=== PATIENT | female | born 1945 | race Caucasian/White ===

== ENCOUNTER 2016-03-19 16:07 | Emergency (ER) | payer MEDICARE, BC ==
[2016-03-19 16:55] LABS: Urine Bilirubin Negative (NEGATIVE); Urine Ketone Negative (NEGATIVE); Urine Nitrite Negative (NEGATIVE); Urine Protein 100 mg/dL (NEGATIVE); Urine Urobilinogen Normal (NORMAL)
--- NOTE | 2016-03-19 17:03 | ERNOTE ---
Medical Problem HPI - General Chief Complaint: General Assessment Time Seen by Provider: 03/19/16 16:50 Source: patient, family Exam Limitations: no limitations - Immun/Allergies/Home Medications Immunizations: IMMUNIZATION HX Immunizations Up to Date Yes History of Influenza Vaccine Yes Hx Pneumococcal Vaccination No Allergies/Adverse Reactions: Allergies gentamicin [Gentamicin] Allergy (Verified 12/28/15 01:09) unknown Metronidazole HCl [From Flagyl] Allergy (Verified 12/28/15 01:09) unknown morphine Allergy (Verified 12/28/15 01:09) unknown ORA Inhibitors Adverse Reaction (Mild, Verified 12/28/15 01:09) COUGH Home Medications: HOME MEDICATIONS Allopurinol [Zyloprim (Allopurinol)] 100 mg PO DAILY 12/28/15 [Last Taken Unknown] Amiodarone HCl [Cordarone] 200 mg PO DAILY 12/28/15 [Last Taken Unknown] Ascorbic Acid [Vitamin C] 500 mg PO DAILY 12/28/15 [Last Taken Unknown] Carvedilol [Coreg] 6.25 mg PO BID 12/28/15 [Last Taken Unknown] Docusate Sodium [Colace] 100 mg PO DAILY 12/28/15 [Last Taken Unknown] Insulin Aspart [Novolog] 5 units SC TIDWM 12/28/15 [Last Taken Unknown] Insulin Glargine,Hum.rec.anlog [Lantus] 28 units SC DAILY 12/28/15 [Last Taken Unknown] Isosorbide Mononitrate [Imdur] 30 mg PO DAILY 12/28/15 [Last Taken Unknown] Oxybutynin Chloride [Ditropan] 5 mg PO TID 12/28/15 [Last Taken Unknown] Rivaroxaban [Xarelto] 15 mg PO HS 12/28/15 [Last Taken Unknown] Simvastatin [Zocor] 20 mg PO DAILY 12/28/15 [Last Taken Unknown] Sulfamethoxazole/Trimethoprim [Bactrim] 1 tab PO BID #10 tablet 12/28/15 [Last Taken Unknown] Ciprofloxacin HCl [Cipro] 500 mg PO BID #20 tab 12/30/15 [Last Taken Unknown] Ciprofloxacin HCl [Cipro] 250 mg PO BID #20 tablet 02/03/16 [Last Taken Unknown] Ciprofloxacin HCl [Cipro] 500 mg PO BID #20 tab 03/19/16 [Last Taken Unknown] - History of Present History Narrative: Patient has felt generally weak for a couple of days. She is concerned that she might be having a bladder infection as she had similar symptoms with one before. She has urinated more frequently today but has no other new symptoms. She had am episode of afib in , that was converted, is not on any anticoagulation any more Review of Systems - Review of Systems Constitutional: Present: See HPI, weakness, malaise. Absent: recent illness, fever, chills EYE: Absent: vision changes ENT: Absent: nose congestion, sore throat Respiratory: Absent: shortness of breath, cough Cardiology: Absent: chest pain Gastrointestinal/Abdominal: Absent: nausea, vomiting, diarrhea, abdominal pain Genitourinary: Present: frequency. Absent: dysuria Skin: Absent: rash Neurological: Present: See HPI, weakness - general ,not focal. Absent: headache , dizziness/light-headedness - Patient's Past Medical History Patient History - Medical: Diabetes Type 2 Insulin Dependent, Kidney stone, UTI' S Patient History - Cardiac/Respiratory: Atrial Fibrillation, Coronary Heart Disease, Myocardial Infarction, Peripheral Vascular Disease, Other - UTI's Patient History - Cancer: No Hx of Cancer Patient History - Surgical Procedures: Amputation, Appendectomy, Cataracts, Cholecystectomy, Coronary Bypass Surgery, Hysterectomy, Other - Family History Mother Family History - Medical: Diabetes Type 2 Family History - Cardiac/Respiratory: Myocardial Infarction - Social History Living Situations: spouse Smoking Status: Never smoker Alcohol Use: none Drug Use: none Physical Exam - Physical Exam General Appearance: Present: wd/wn, alert, no apparent distress Eye Exam: Normal inspection: bilateral, PERRL: bilateral Ears, Nose, Throat: Present: normal ENT inspection, normal pharynx Neck: Present: normal inspection, nontender Respiratory: Present: no respiratory distress, normal breath sounds, no accessory muscle use, lungs clear Cardiovascular/Chest: Present: regular rate, rhythm, no murmur Gastrointestinal/Abdominal: Present: nontender, nondistended, soft Extremity Exam: Present: other - BKA bilateral Neurological Exam: Present: alert, oriented, normal mood/affect, no motor/ sensory deficits, analytics intern II-XII nml as tested Skin Exam: Present: normal color, warm/dry ED Progress - Results and Orders Patient's Lab Results:: I have reviewed the patient's lab results. - Vital Signs Patient's Vital Signs:: I have reviewed the patient's vital signs. Vital Signs: Vital Signs 03/19/16 16:27 Temperature 36.5 C Pulse Rate 64 Respiratory 16 Rate Blood Pressure 122/78 O2 Sat by Pulse 94 Oximetry - Progress/Reassessment Chief Complaint: General Assessment Progress Note-Subjective: 03/19/16 17:41 discussed lab results last positive culture from december grew pseudomonas sensitive to cipro Departure - Departure Clinical Impression: Urinary tract infection Qualifiers: Urinary tract infection type: acute cystitis Hematuria presence: without hematuria Qualified Code(s): N30.00 - Acute cystitis without hematuria Disposition: Home self-care Condition: Poor Instructions: Urinary Tract Infection, Adult, [id number] Referrals: Samantha Watson MD [Staff Physician] - Prescriptions: Ciprofloxacin HCl [Cipro] 500 mg PO BID #20 tab
[2016-03-19 17:09] LABS: Urine Blood 10 /ul (NEGATIVE)
[2016-03-19 17:10] LABS: Urine Appearance Slightly Cloudy; Urine Bacteria 4+; Urine Color Yellow; Urine Fine Granular Cast 0-5 /LPF; Urine Hyaline Cast 0-5 /LPF; Urine RBC 0-5 /hpf (0-5); Urine Waxy Cast 0-5 /LPF
[2016-03-19 17:11] LABS: Urine WBC 25-50 /hpf (0-5)
[2016-03-19 17:19] VITALS: BP 156/60
[2016-03-19] MEDS ORDERED: CIPROFLOXACIN HCL 250 MG TABLET PO ONE (17:41)
[2016-03-19] MEDS ORDERED: CIPROFLOXACIN HCL 250 MG TABLET ONE (17:55)
== END 2016-03-19 17:58 | disposition home or self-care (01) ==
LOC: ER 16:07
DX: N30.00 Acute cystitis without hematuria (principal); Z87.442 Personal history of urinary calculi; Z87.440 Personal history of urinary (tract) infections

== ENCOUNTER 2016-03-27 10:34 | Inpatient (IN) | payer MEDICARE, BC ==
[2016-03-27] MEDS ORDERED: NORMAL SALINE 1,000 ML IV ONE (11:01)
--- NOTE | 2016-03-27 11:10 | ERNOTE ---
Medical Problem HPI - Narrative Date of Service: 03/27/16 - General Chief Complaint: General Assessment Time Seen by Provider: 03/27/16 10:55 Source: patient, family Exam Limitations: no limitations - Immun/Allergies/Home Medications Immunizations: IMMUNIZATION HX Immunizations Up to Date Yes History of Influenza Vaccine Yes Hx Pneumococcal Vaccination No Allergies/Adverse Reactions: Allergies gentamicin [Gentamicin] Allergy (Verified 03/27/16 10:43) unknown Metronidazole HCl [From Flagyl] Allergy (Verified 03/27/16 10:43) unknown morphine Allergy (Verified 03/27/16 10:43) unknown ROA Inhibitors Adverse Reaction (Mild, Verified 03/27/16 10:43) COUGH Home Medications: HOME MEDICATIONS Allopurinol [Zyloprim (Allopurinol)] 100 mg PO DAILY 12/28/15 [Last Taken Unknown] Amiodarone HCl [Cordarone] 200 mg PO DAILY 12/28/15 [Last Taken Unknown] Ascorbic Acid [Vitamin C] 500 mg PO DAILY 12/28/15 [Last Taken Unknown] Carvedilol [Coreg] 6.25 mg PO BID 12/28/15 [Last Taken Unknown] Docusate Sodium [Colace] 100 mg PO DAILY 12/28/15 [Last Taken Unknown] Insulin Aspart [Novolog] 5 units SC TIDWM 12/28/15 [Last Taken Unknown] Insulin Glargine,Hum.rec.anlog [Lantus] 28 units SC DAILY 12/28/15 [Last Taken Unknown] Isosorbide Mononitrate [Imdur] 30 mg PO DAILY 12/28/15 [Last Taken Unknown] Oxybutynin Chloride [Ditropan] 5 mg PO TID 12/28/15 [Last Taken Unknown] Rivaroxaban [Xarelto] 15 mg PO HS 12/28/15 [Last Taken Unknown] Simvastatin [Zocor] 20 mg PO DAILY 12/28/15 [Last Taken Unknown] Sulfamethoxazole/Trimethoprim [Bactrim] 1 tab PO BID #10 tablet 12/28/15 [Last Taken Unknown] Ciprofloxacin HCl [Cipro] 500 mg PO BID #20 tab 12/30/15 [Last Taken Unknown] Ciprofloxacin HCl [Cipro] 250 mg PO BID #20 tablet 02/03/16 [Last Taken Unknown] Ciprofloxacin HCl [Cipro] 500 mg PO BID #20 tab 03/19/16 [Last Taken Unknown] - History of Present History Narrative: Pt. comes in with c/o weakness for four days. Pt. states that she was so weak this morning that she fell to the ground as she was unable to hold herself up with her walker. Pt. states that she has been under treatment for a UTI for a week with a change in medication on Saturday due to culture results. Pt. state that she is not improving and her symptoms are worsening despite treatment. Review of Systems - Review of Systems Constitutional: Present: weakness, fatigue, malaise. Absent: fever, chills EYE: Present: no symptoms reported ENT: Present: no symptoms reported. Absent: nose pain, nose congestion, nasal drainage Respiratory: Present: no symptoms reported. Absent: shortness of breath, cough , wheezing Cardiology: Present: no symptoms reported. Absent: chest pain, palpitations, edema Gastrointestinal/Abdominal: Absent: nausea, vomiting, diarrhea, abdominal pain Genitourinary: Present: frequency, pain, dysuria, decreased urinary output Musculoskeletal: Present: no symptoms reported. Absent: back pain, joint pain Skin: Present: no symptoms reported. Absent: rash, change in color Neurological: Present: no symptoms reported. Absent: headache, dizziness/light- headedness, numbness, tingling All Other Systems: All systems neg except as marked - Patient's Past Medical History Patient History - Medical: Diabetes Type 2 Insulin Dependent, Kidney stone, UTI' S Patient History - Cardiac/Respiratory: Atrial Fibrillation, Coronary Heart Disease, Myocardial Infarction, Peripheral Vascular Disease, Other - UTI's Patient History - Cancer: No Hx of Cancer Patient History - Surgical Procedures: Amputation, Appendectomy, Cataracts, Cholecystectomy, Coronary Bypass Surgery, Hysterectomy, Other - Family History Mother Family History - Medical: Diabetes Type 2 Family History - Cardiac/Respiratory: Myocardial Infarction - Social History Living Situations: spouse Smoking Status: Never smoker Have you smoked in the past 12 months: No Alcohol Use: none Drug Use: none Physical Exam - Physical Exam General Appearance: Present: wd/wn, alert, no apparent distress Eye Exam: Normal inspection: bilateral, PERRL: bilateral, EOMI: bilateral Ears, Nose, Throat: Present: normal ENT inspection, hearing grossly normal, normal pharynx Neck: Present: normal inspection, nontender. Absent: lymphadenopathy (R), lymphadenopathy (L) Respiratory: Present: no respiratory distress, normal breath sounds, no accessory muscle use, chest nontender, lungs clear Cardiovascular/Chest: Present: regular rate, rhythm, normal peripheral pulses, systolic murmur Gastrointestinal/Abdominal: Present: normal bowel sounds, nontender, nondistended, soft, no organomegaly Back Exam: Present: normal inspection, normal range of motion, no CVA tenderness , no vertebral tenderness Extremity Exam: Present: normal inspection, non-tender, no edema, normal range of motion Neurological Exam: Present: alert, oriented, normal mood/affect, no motor/ sensory deficits Skin Exam: Present: warm/dry, pallor, other - dusky ED Progress - Date and Time Seen: Date and Time: 03/27/16 12:[address] Cruz pt. urologist and he would like pt. to receive emergent CT scan of kidneys. 03/27/16 14:[address] Hall and he recommends treating infection inpatient at [facility] Discussed case with Dr Watson and he accepts admit and will consult local urology for possible cystoscopy. - Results and Orders Patient's Lab Results:: I have reviewed the patient's lab results. - Vital Signs Patient's Vital Signs:: I have reviewed the patient's vital signs. Vital Signs: Vital Signs 03/27/16 10:39 Temperature 35.8 C L Pulse Rate 70 Respiratory 14 Rate Blood Pressure 159/74 O2 Sat by Pulse 96 Oximetry - CT/Ultrasound CT/Ultrasound Narrative: ABDOMEN: The examination is overall limited by noncontrast CT technique. Potential parenchymal tumor or acute vascular process such as aortic dissection or thrombosis of a vascular structure would be difficult to exclude. Right kidney: No obvious mass. Patient has intrarenal arterial vascular calcifications, but no definite signs of nephrolithiasis. There is mild to moderate hydronephrosis suggested, with dilation of the right renal pelvis, with a sharp transition at the level of the ureteropelvic junction. Asymmetric perinephric stranding suggested. No evidence for ureteral stone or dilation. Left kidney: No obvious mass. No definite signs of intrarenal calcifications. Extrarenal pelvis noted. No audelia hydronephrosis. Mild perinephric stranding. No evidence for ureteral stone or dilation. Lung bases: There is a 8 mm noncalcified pulmonary nodule in the right lower lobe. Liver: Multiple calcified granulomas are present. No obvious focal mass. Gallbladder: Gallbladder appears to be surgically absent. Pancreas: Unremarkable. Spleen: Multiple calcified splenic granulomas present. Adrenal glands: Unremarkable. Aorta: Atherosclerotic mural calcifications noted without abnormal dilation. Diameter of the infrarenal segment at the inferior mesenteric artery origin is 1.3 cm. Retroperitoneum: Unremarkable. Stomach: Unremarkable. Small bowel: Unremarkable. Large bowel: Large amount of stool retention noted within the colonic segments, especially in the rectosigmoid region suggestive of potential fecal impaction. No definite signs of pericolonic inflammatory changes or bowel wall thickening.. Appendix is surgically absent. Abdominal wall: Small fat-containing umbilical hernia suggested. No definable intraperitoneal free air noted. PELVIS: Bladder: No bladder calcifications or abnormal air. Mild urinary bladder wall thickening suggested. No free fluid or fluid collection. No pelvic mass or lymphadenopathy. Bones: Overall grossly intact. Degenerative changes of thoracolumbar spine and bilateral hips noted. IMPRESSION: 1. [id number] right-sided hydronephrosis, with transition point at the level of the right ureteropelvic junction without definite signs of stones. Correlate clinically for other causes of obstruction. Also consider infection. 2. Large amount of stool retention within the colonic segment suggestive of constipation, with a large stool ball suggested within the rectosigmoid colon. Consider fecal impaction. 3. Mild urinary bladder wall thickening noted. Consider cystitis. 4. 8 mm nonspecific right lower lobe pulmonary nodule. Recommend follow-up chest CT in 6 months, if the patient is considered low risk, and follow chest CT in 3 months, if the patient is considered high risk. Please see below for recommendations regarding follow-up. - Progress/Reassessment Chief Complaint: General Assessment Departure - Departure Clinical Impression: Pyelonephritis, acute CRF (chronic renal failure) Qualifiers: Chronic kidney disease stage: unspecified stage Qualified Code(s): N18.9 - Chronic kidney disease, unspecified Hydronephrosis Qualifiers: Hydronephrosis type: other Qualified Code(s): N13.39 - Other hydronephrosis Disposition: [facility] Condition: Fair
[2016-03-27 11:20] LABS: Hematocrit 33.8 % (37.0-47.0); Hemoglobin 11.2 gm/dL (12.5-16.0); Mean Cell Volume 93.4 fl (78-100); Mean Corpuscular Hemoglobin 30.9 pg (27-31); Mean Corpuscular Hgb Conc 33.1 g/dl (32-36); Mean Platelet Volume 10.6 fl (6.0-9.5); Neutrophil # 4.6 K/mm3 (1.3-6.0); Neutrophil % 75.5 % (42-75.0); Platelet Count 132 K/mm3 (150-450); Red Blood Count 3.62 M/mm3 (4.2-5.4); Red Cell Distribution Width 13.9 % (11.5-14.0); White Blood Count 6.1 K/mm3 (4.0-10.5)
[2016-03-27 11:37] LABS: Albumin * 3.6 gm/dl (3.4-5.0); Anion Gap 15.4 mmol/L (6.8-13.8); BUN/Creatinine Ratio 16.8 (9.0-21.6); Bilirubin, Total 0.5 mg/dL (0.0-1.1); Ca. Corrected For Albumin 12.9 mg/dL (8.4-10.2); Calcium * 12.9 mg/dL (7.9-10.9); Carbon Dioxide 23.2 mmol/L (24-32.6); Potassium 4.6 mmol/L (3.4-4.6); Total Protein 6.6 gm/dL (6.2-8.2)
[2016-03-27 11:39] LABS: Urine Bilirubin Negative (NEGATIVE); Urine Blood Negative /ul (NEGATIVE); Urine Ketone Negative (NEGATIVE); Urine Nitrite Negative (NEGATIVE); Urine Protein 100 mg/dL (NEGATIVE); Urine Specific Gravity 1.025 SP.GR. (1.005-1.010); Urine Urobilinogen Normal (NORMAL); Urine pH 5.5 pH (5.0-7.0)
[2016-03-27 12:00] LABS: Urine Appearance Slightly Cloudy; Urine Bacteria TRACE; Urine Color Yellow; Urine RBC None Seen /hpf (0-5)
--- NOTE | 2016-03-27 16:57 | HP ---
Chief Complaint - Chief Complaint Date of Service: 03/27/16 Time of Service: 16:45 Chief Complaint: generalized weakness History of Present Illness: Desiree Gutiérrez, is 70-year-old white female, with previous medical history of bilateral amputation below knee due to peripheral arterial disease, chronic renal failure stage IV, coronary artery disease, diabetes mellitus type 2, hypertension, who was admitted today for generalized weakness. One and one- half weeks ago patient started to have signs and symptoms of urinary tract infection and was seen in the emergency room. She started on Cipro. 5 days ago the emergency room called her and changed her antibiotic to Macrobid as her culture was growing Enterococcus feacium. For the last 4 days she has been feeling weak so much so that today patient fell down as she was not able to hold herself up with her walker. She was brought to the emergency room where a CT scan of her abdomen showed mild to moderate right hydronephrosis, with transition point in the ureter pelvic junction without evidence of stone. She also had bladder wall thickening likely cystitis and a large amount of stool retention as well as an 8 mm pulmonary nodule. Her white blood cell count was 6.1 Her creatinine was 2.89. She was then admitted for further evaluation and treatment. We will get a urology consult in the morning. She did have a recent history of stenting for hydronephrosis due to stone in [facility] last December. - Patient's Past Medical History Patient History - Medical: Diabetes Type 2 Insulin Dependent, Kidney stone, UTI' S Patient History - Cardiac/Respiratory: Atrial Fibrillation, Coronary Heart Disease, Myocardial Infarction, Peripheral Vascular Disease, Other - UTI's Patient History - Cancer: No Hx of Cancer Patient History - Surgical Procedures: Amputation, Appendectomy, Cataracts, Cholecystectomy, Coronary Bypass Surgery, Hysterectomy, Other - Family History Mother Family History - Medical: Diabetes Type 2 Family History - Cardiac/Respiratory: Myocardial Infarction - Social History Living Situations: spouse Smoking Status: Never smoker Have you smoked in the past 12 months: No Alcohol Use: none Drug Use: none Review Of Systems (GEN) - Review of Systems Generalized/Overall Review: Present: Weakness, Fatigue. Absent: Chills, Fever EENTM: Present: No Symptoms Reported Respiratory: Absent: Cough, Shortness of Breath Cardiac: Absent: Chest Pain, Edema, Palpitations Abdominal: Absent: Nausea, Vomiting Genitourinary: Present: Urgency, Frequency Musculoskeletal: Present: Joint Pain Allergies/Adverse Reactions: Allergies Allergy/AdvReac Type Severity Reaction Status Date / Time gentamicin [Gentamicin] Allergy unknown Verified 03/27/16 10:43 Metronidazole HCl Allergy unknown Verified 03/27/16 10:43 [From Flagyl] morphine Allergy unknown Verified 03/27/16 10:43 ORA Inhibitors AdvReac Mild COUGH Verified 03/27/16 10:43 Home Medications: HOME MEDICATIONS Allopurinol [Zyloprim (Allopurinol)] 100 mg PO DAILY 12/28/15 [Last Taken Unknown] Amiodarone HCl [Cordarone] 200 mg PO DAILY 12/28/15 [Last Taken Unknown] Ascorbic Acid [Vitamin C] 500 mg PO DAILY 12/28/15 [Last Taken Unknown] Carvedilol [Coreg] 6.25 mg PO BID 12/28/15 [Last Taken Unknown] Docusate Sodium [Colace] 100 mg PO DAILY 12/28/15 [Last Taken Unknown] Insulin Aspart [Novolog] 5 units SC TIDWM 12/28/15 [Last Taken Unknown] Insulin Glargine,Hum.rec.anlog [Lantus] 28 units SC DAILY 12/28/15 [Last Taken Unknown] Isosorbide Mononitrate [Imdur] 30 mg PO DAILY 12/28/15 [Last Taken Unknown] Oxybutynin Chloride [Ditropan] 5 mg PO TID 12/28/15 [Last Taken Unknown] Rivaroxaban [Xarelto] 15 mg PO HS 12/28/15 [Last Taken Unknown] Simvastatin [Zocor] 20 mg PO DAILY 12/28/15 [Last Taken Unknown] Exam - Exam Vital Signs: Vital Signs - Last Taken Temp 36.6 C 03/27/16 14:40 Pulse 68 03/27/16 14:40 Resp 20 03/27/16 14:40 BP 157/69 03/27/16 14:40 Pulse Ox 97 03/27/16 14:40 Constitutional: Present: Alert, Oriented x3 - but at times gets probelm with remebering recent events, Cooperative ENT Exam: Present: hearing grossly normal Eye Exam: bilateral eye: normal inspection, PERRL, EOMI Neck: Present: supple Back Exam: Present: no CVA tenderness Breasts: Present: Exam deferred Respiratory: Present: decreased breath sounds, No rales, No wheezing Cardiovascular/Chest: Present: regular rate, rhythm, no JVD, no murmur Abdomen: Present: Normal bowel sounds, soft, nontender, nondistended Extremity: Present: other - b/l BKA with prosthesis Diagnostic Studies: Abnormal Lab Results 03/27/16 Range/Units 15:50 Creatinine 2.81 H (0.4-1.4) mg/dL Laboratory Results WBC 6.1 K/mm3 (4.0-10.5) 03/27/16 11:13 RBC 3.62 M/mm3 (4.2-5.4) L 03/27/16 11:13 Hgb 11.2 gm/dL (12.5-16.0) L 03/27/16 11:13 Hct 33.8 % (37.0-47.0) L 03/27/16 11:13 MCV 93.4 fl (78-100) 03/27/16 11:13 MCH 30.9 pg (27-31) 03/27/16 11:13 MCHC 33.1 g/dl (32-36) 03/27/16 11:13 RDW 13.9 % (11.5-14.0) 03/27/16 11:13 Plt Count 132 K/mm3 (150-450) L 03/27/16 11:13 MPV 10.6 fl (6.0-9.5) H 03/27/16 11:13 Immature Gran % (Auto) 0.50 % (0.001-0.429) H 03/27/16 11:13 Immature Gran # (Auto) 0.03 K/mm3 (0.000-0.0310) 03/27/16 11:13 Neutrophils % 75.5 % (42-75.0) H 03/27/16 11:13 Lymphocytes % 15.6 % (20-51) L 03/27/16 11:13 Monocytes % 7.2 % (0.0-9) 03/27/16 11:13 Eosinophils % 0.7 % (0.0-3.0) 03/27/16 11:13 Basophils % 0.5 % (0.0-1.0) 03/27/16 11:13 Nucleated RBC % 0.0 k/mm3 (0-1) 03/27/16 11:13 Neutrophils # 4.6 K/mm3 (1.3-6.0) 03/27/16 11:13 Lymphocytes # 1.0 k/mm3 (1.5-3.5) L 03/27/16 11:13 Monocytes # 0.4 k/mm3 (0.0-1.0) 03/27/16 11:13 Eosinophils # 0.0 k/mm3 (0.0-0.7) 03/27/16 11:13 Absolute Basophils 0.0 k/mm3 (0.0-0.1) 03/27/16 11:13 Sodium 139 mmol/L (132-142) 03/27/16 11:13 Plasma Sodium 139 mmol/L (130-142) 03/27/16 11:13 Potassium 4.6 mmol/L (3.4-4.6) 03/27/16 11:13 Chloride 105 mmol/L (97-106) 03/27/16 11:13 Carbon Dioxide 23.2 mmol/L (24-32.6) L 03/27/16 11:13 Anion Gap 15.4 mmol/L (6.8-13.8) H 03/27/16 11:13 BUN 50 mg/dL (3-23) H 03/27/16 11:13 Creatinine 2.81 mg/dL (0.4-1.4) H 03/27/16 15:50 Est GFR (Non-Af Amer) 16 mL/min (60-130) L 03/27/16 11:13 BUN/Creatinine Ratio 16.8 (9.0-21.6) 03/27/16 11:13 Random Glucose 118 mg/dL (70-110) H 03/27/16 11:13 Lactic Acid, Venous 0.9 mmol/L (0.4-2.0) 03/27/16 11:13 Calcium 12.9 mg/dL (7.9-10.9) H 03/27/16 11:13 Calcium Adj for Albumin 12.9 mg/dL (8.4-10.2) H 03/27/16 11:13 Total Bilirubin 0.5 mg/dL (0.0-1.1) 03/27/16 11:13 AST 9 U/L (0-48) 03/27/16 11:13 ALT 14 U/L (19-67) L 03/27/16 11:13 Alkaline Phosphatase 108 U/L (50-170) 03/27/16 11:13 Total Protein 6.6 gm/dL (6.2-8.2) 03/27/16 11:13 Albumin 3.6 gm/dl (3.4-5.0) 03/27/16 11:13 Urine Color Yellow 03/27/16 11:34 Urine Appearance Slightly cloudy 03/27/16 11:34 Urine pH 5.5 pH (5.0-7.0) 03/27/16 11:34 Ur Specific [place] 1.025 SP.GR. (1.005-1.010) 03/27/16 11:34 Urine Protein 100 mg/dL (NEGATIVE) H 03/27/16 11:34 Urine Glucose (UA) Negative mg/dL (NEGATIVE) 03/27/16 11:34 Urine Ketones Negative mg/dL (NEGATIVE) 03/27/16 11:34 Urine Blood Negative /ul (NEGATIVE) 03/27/16 11:34 Urine Nitrate Negative (NEGATIVE) 03/27/16 11:34 Urine Bilirubin Negative mg/dl (NEGATIVE) 03/27/16 11:34 Prot Sulfosalicylic Acd 4+ mg/dL (0) H 03/27/16 11:34 Urine Urobilinogen Normal EU/dl (NORMAL) 03/27/16 11:34 Ur Leukocyte Esterase 75 /ul (NEGATIVE) H 03/27/16 11:34 Urine RBC None seen /hpf (0-5) 03/27/16 11:34 Urine WBC 5-10 /hpf (0-5) H 03/27/16 11:34 Ur Epithelial Cells 5-10 /hpf (0-5) H 03/27/16 11:34 Urine Bacteria Trace (NONE) 03/27/16 11:34 Urine Culture Comments Culture to follow 03/27/16 11:34 Assessment/Plan - Assessment/Plan (1) Hydronephrosis Assessment: will insert jordan catheter and refer to Urology for evaluation (possible cystoscopy and stenting) Problem: Acute Qualifiers: Hydronephrosis type: unspecified Qualified Code(s): N13.30 - Unspecified hydronephrosis (2) Urinary tract infection in elderly patient Assessment: will start her IV vanco (pharmacy to adjust dose per Cr clearance) and IV Rocephin Problem: Acute (3) CRF (chronic renal failure) Assessment: will start her on IVF Problem: Chronic Qualifiers: Chronic kidney disease stage: stage 4 (severe) Qualified Code(s): N18.4 - Chronic kidney disease, stage 4 (severe) (4) Peripheral vascular disease Problem: Chronic (5) Hypertension Problem: Chronic Qualifiers: Hypertension type: essential hypertension Qualified Code(s): I10 - Essential (primary) hypertension (6) Coronary artery disease Problem: Chronic Qualifiers: Coronary Disease-Associated Artery/Lesion type: bypass graft [place] vs. transplanted heart: [place] heart Associated angina: without angina Qualified Code(s): I25.810 - Atherosclerosis of coronary artery bypass graft(s) without angina pectoris (7) Atrial fibrillation Assessment: on eliquis. Problem: Chronic Qualifiers: Atrial fibrillation type: chronic Qualified Code(s): I48.2 - Chronic atrial fibrillation
[2016-03-27] MEDS: VANCOMYCIN HCL 1 GM in DEXTROSE 5 % IN WATER 250 ML IV SCH ×2 (17:28)
[2016-03-27] MEDS: NORMAL SALINE 1,000 ML IV PRN (17:28)
[2016-03-27] MEDS: INSULIN LISPRO 100 UNITS/ML VIAL SC SCH (17:36)
[2016-03-27] MEDS: CARVEDILOL 6.25 MG TABLET PO SCH (21:24)
[2016-03-27] MEDS: OXYBUTYNIN CHLORIDE 5 MG TABLET PO SCH (21:25)
[2016-03-27] MEDS: SIMVASTATIN 20 MG TABLET PO SCH (21:25)
[2016-03-27] MEDS ORDERED: NYSTATIN 15 APPL BTL TP ONE (22:17)
[2016-03-28] MEDS: NORMAL SALINE 1,000 ML IV PRN (06:21)
[2016-03-28] MEDS: INSULIN LISPRO 100 UNITS/ML VIAL SC SCH ×3 (07:06→18:14)
[2016-03-28] MEDS: OXYBUTYNIN CHLORIDE 5 MG TABLET PO SCH ×3 (07:07→20:16)
[2016-03-28] MEDS ORDERED: ACETAMINOPHEN 325 MG TABLET PO PRN (07:23)
--- NOTE | 2016-03-28 08:51 | PN ---
Subjective - Date and Time Seen Date: 03/28/16 Time: 08:47 Subjective Narrative: Feeling better today. Objective - Review of Systems Generalized/Overall Review: Reports: Weakness. Denies: Chills, Fever EENTM: Reports: No Symptoms Reported Respiratory: Denies: Cough, Shortness of Breath Cardiac: Denies: Chest Pain, Edema, Palpitations Abdominal: Denies: Nausea, Vomiting Genitourinary Symptoms: Reports: Urgency, Frequency Musculoskeletal Complaints: Reports: Joint Pain - Vitals Vitals: Last Vital Signs Temp 36.7 C 03/28/16 06:32 Pulse 55 L 03/28/16 06:32 Resp 12 03/28/16 06:32 BP 185/68 03/28/16 06:32 Pulse Ox 95 03/28/16 06:32 - Abnormal Lab Findings Abnormal Lab Findings: Abnormal Lab Results 03/27/16 Range/Units 15:50 Creatinine 2.81 H (0.4-1.4) mg/dL - Exam Constitutional: Present: Alert, Oriented x3, Cooperative ENT Exam: Present: hearing grossly normal Neck: Present: supple Breasts: Present: Exam deferred Respiratory: Present: decreased breath sounds, No rales, No wheezing Cardiovascular/Chest: Present: no JVD, no murmur, irregularly irregular Abdomen: Present: Normal bowel sounds, soft, nontender, nondistended Extremity: Present: other - b/l BKA Cauti Physician Documentation - Urinary Catheter Management Uretheral (Real) Date of Insertion: 03/27/16 Time of Insertion: 21:30 Assessment/Plan - Problems/Diagnosis (1) Hydronephrosis Problem: Acute Qualifiers: Hydronephrosis type: unspecified Qualified Code(s): N13.30 - Unspecified hydronephrosis Narrative: renal US today. consult Urology (2) Urinary tract infection in elderly patient Problem: Acute Narrative: r/o beginning acute pyelonephritis. Urine C & S grew Enterococcus Feacium a few days ago - continue IV Vanco and added Rocephin. (3) CRF (chronic renal failure) Problem: Chronic Qualifiers: Chronic kidney disease stage: stage 4 (severe) Qualified Code(s): N18.4 - Chronic kidney disease, stage 4 (severe) (4) Peripheral vascular disease Problem: Chronic (5) Hypertension Problem: Chronic Qualifiers: Hypertension type: essential hypertension Qualified Code(s): I10 - Essential (primary) hypertension (6) Coronary artery disease Problem: Chronic Qualifiers: Coronary Disease-Associated Artery/Lesion type: bypass graft [place] vs. transplanted heart: [place] heart Associated angina: without angina Qualified Code(s): I25.810 - Atherosclerosis of coronary artery bypass graft(s) without angina pectoris (7) Atrial fibrillation Problem: Chronic Qualifiers: Atrial fibrillation type: chronic Qualified Code(s): I48.2 - Chronic atrial fibrillation
[2016-03-28 08:59] LABS: Anion Gap 13.8 mmol/L (6.8-13.8); BUN/Creatinine Ratio 17.4 (9.0-21.6); Calcium * 11.7 mg/dL (7.9-10.9); Carbon Dioxide 22.6 mmol/L (24-32.6); Estimated Creat Clear 22.6; Potassium 4.4 mmol/L (3.4-4.6)
[2016-03-28] MEDS: ASCORBIC ACID 500 MG TABLET PO SCH (09:47)
[2016-03-28] MEDS: INSULIN GLARGINE,HUM.REC.ANLOG 100 UNITS/ML VIAL SC SCH (09:47)
[2016-03-28] MEDS: ALLOPURINOL 100 MG TABLET PO SCH (09:47)
[2016-03-28] MEDS: CARVEDILOL 6.25 MG TABLET PO SCH ×2 (09:47→20:16)
[2016-03-28] MEDS: ISOSORBIDE MONONITRATE 30 MG TAB.SR.24H PO SCH (09:47)
[2016-03-28] MEDS: DOCUSATE SODIUM 100 MG CAPSULE PO SCH (09:47)
[2016-03-28] MEDS: AMIODARONE HCL 200 MG TABLET PO SCH (09:47)
[2016-03-28] MEDS: NYSTATIN 15 APPL BTL TP SCH ×4 (09:48→20:15)
[2016-03-28] MEDS ORDERED: ceFAZolin SODIUM 2 GM in DEXTROSE 5 % IN WATER 50 ML IV PRN ×2 (10:54)
--- NOTE | 2016-03-28 13:27 | CONS ---
HPI - General Narrative: 70-year-old diabetic female with significant renal failure prior history of stones admitted for some atypical UTI-like symptoms. Current urine culture obtained via a voided specimen showing 2 different gram-negative's. Her creatinine appears to be within her normal creatinine range at baseline. Blood cultures negative. Creatinine history: 04/03 2.48 04/03 CT stone protocol: Right hydronephrosis with UPJ transition point. No stones. No left hydronephrosis. Location: Right kidney Duration: Discovered 04/03 Severity/Stage: Moderate hydronephrosis Associated Sx's: No flank pain or nausea. Nonspecific UTI-like symptoms Modifying factors: Feels better since being admitted Quality: Currently painless Past medical history: Diabetic, underlying renal failure, prior stones Past surgical history: Prior right-sided stone surgery Family history: Diabetes, noncontributory Social history: Nonsmoker review of systems: General: No current fevers, flank pain or nausea Lungs: Occasional shortness of breath Heart: No chest pain GI: Bowel issues from time to time Musculoskeletal: Bilateral amputee : No gross hematuria, voids on her own. Urinalysis obtained via voiding and a hat 14 point review of systems otherwise negative, important positives noted - History of Present Illness Allergies/Adverse Reactions: Allergies gentamicin [Gentamicin] Allergy (Verified 03/27/16 10:43) unknown Metronidazole HCl [From Flagyl] Allergy (Verified 03/27/16 10:43) unknown morphine Allergy (Verified 03/27/16 10:43) unknown ORA Inhibitors Adverse Reaction (Mild, Verified 03/27/16 10:43) COUGH Home Medications: Home Medications Medication Instructions Recorded Last Taken Allopurinol [Zyloprim 100 mg PO DAILY 12/28/15 Unknown (Allopurinol)] Amiodarone HCl [Cordarone] 200 mg PO DAILY 12/28/15 Unknown Ascorbic Acid [Vitamin C] 500 mg PO DAILY 12/28/15 Unknown Carvedilol [Coreg] 6.25 mg PO BID 12/28/15 Unknown Docusate Sodium [Colace] 100 mg PO DAILY 12/28/15 Unknown Insulin Aspart [Novolog] 5 units SC TIDWM 12/28/15 Unknown Insulin Glargine,Hum.rec.anlog 28 units SC DAILY 12/28/15 Unknown [Lantus] Isosorbide Mononitrate [Imdur] 30 mg PO DAILY 12/28/15 Unknown Oxybutynin Chloride [Ditropan] 5 mg PO TID 12/28/15 Unknown Rivaroxaban [Xarelto] 15 mg PO HS 12/28/15 Unknown Simvastatin [Zocor] 20 mg PO DAILY 12/28/15 Unknown - Patient's Past Medical History Patient History - Medical: Diabetes Type 2 Insulin Dependent, Kidney stone, UTI' S Patient History - Cardiac/Respiratory: Atrial Fibrillation, Coronary Heart Disease, Myocardial Infarction, Peripheral Vascular Disease, Other - UTI's Patient History - Cancer: No Hx of Cancer Patient History - Surgical Procedures: Amputation, Appendectomy, Cataracts, Cholecystectomy, Coronary Bypass Surgery, Hysterectomy, Other - Family History Mother Family History - Medical: Diabetes Type 2 Family History - Cardiac/Respiratory: Myocardial Infarction - Social History Living Situations: spouse Smoking Status: Never smoker Have you smoked in the past 12 months: No Alcohol Use: none Drug Use: none Procedures AMPUTATION STUMP [place] (09/03/13) ANESTH INJECT-SPIN CANAL (01/09/02) ANKLE FUSION (11/02/04) ANKLE JOINT BIOPSY (12/26/05) APPLICATION OF SPLINT (02/27/10) ARTERIAL BLD GAS MEASURE (08/08/07) ATTACH PEDICLE GRAFT NEC (05/12/99) BELOW KNEE AMPUTAT NEC (08/04/07) CATARAC PHACOEMULS/ASPIR (03/26/06) DESTRUC-ANKLE LESION NEC (01/17/07) ESOPHAGOGASTRODUODENOSCOPY [EGD] W/CLOSED BIOPSY (07/30/05) EXCIS DEBRIDE OF WOUND, INFECT, OR BURN (05/12/99) EXCISE TIB/FIB FOR GRAFT (11/02/04) EXCISION FOOT JOINT NEC (04/23/02) EXPLOR TEND SHEATH-HAND (03/09/05) INJECT STEROID (01/09/02) INSERT LENS AT CATAR EXT (03/26/06) LOC EXC BONE LESION NEC (05/22/07) MYOTOMY (05/22/07) NONEXCIS DEBRID OF WOUND, INFECT, OR BURN (06/23/07) OTH ARTHROTOMY-ANKLE (06/08/02) OTHER LOCAL DESTRUC SKIN (12/26/05) OTHER MYECTOMY (05/25/13) OTHER TENONECTOMY (09/28/08) PART OSTECT-METATAR/TAR (06/06/06) PARTIAL OSTECTOMY NEC (04/12/03) REMOV INT FIX-METAT/TAR (09/21/02) SPINAL CANAL INJECT NEC (01/09/02) TOE AMPUTATION (04/29/13) TRANSPLANT HAND TEND NEC (09/28/08) TRIPLE ARTHRODESIS (07/22/02) VENOUS CATHETERIZATION NEC (12/26/05) Medications - Medications Current Medications: Current Medications Allopurinol (Zyloprim) 100 mg PO DAILY RADHIKA Stop: 04/27/16 09:01 Last Admin: 03/28/16 09:47 Dose: 100 mg Amiodarone HCl (Cordarone) 200 mg PO DAILY RADHIKA Stop: 04/27/16 09:01 Last Admin: 03/28/16 09:47 Dose: 200 mg Ascorbic Acid (Vitamin C) 500 mg PO DAILY RADHIKA Stop: 04/27/16 09:01 Last Admin: 03/28/16 09:47 Dose: 500 mg Carvedilol (Coreg) 6.25 mg PO BID RADHIKA Stop: 04/26/16 21:01 Last Admin: 03/28/16 09:47 Dose: 6.25 mg Docusate Sodium (Colace) 100 mg PO DAILY RADHIKA Stop: 04/27/16 09:01 Last Admin: 03/28/16 09:47 Dose: 100 mg Vancomycin HCl 1 gm/ Dextrose/ (Water) 250 mls @ 140 mls/hr IV Q24H RADHIKA PRN Reason: Protocol Stop: 04/26/16 15:16 Last Admin: 03/27/16 17:28 Dose: 140 mls/hr Ceftriaxone Sodium 1,000 mg/ (Dextrose/Water) 100 mls @ 200 mls/hr IV Q24H RADHIKA PRN Reason: Protocol Stop: 04/26/16 17:31 Last Admin: 03/27/16 19:48 Dose: 200 mls/hr Sodium Chloride (Sodium Chloride 0.9%) 1,000 mls @ 100 mls/hr IV .Q10H PRN PRN Reason: HYDRATION Stop: 04/26/16 17:19 Last Admin: 03/28/16 06:21 Dose: 100 mls/hr Insulin Glargine (Lantus) 28 units SC DAILY RADHIKA Stop: 04/27/16 09:01 Last Admin: 03/28/16 09:47 Dose: 28 units Insulin Human Lispro (Humalog) 0 - 21 units SC ACINS [facility] PRN Reason: Protocol Stop: 04/26/16 17:31 Last Admin: 03/28/16 12:23 Dose: Not Given Isosorbide Mononitrate (Imdur) 30 mg PO DAILY [facility] Stop: 04/27/16 09:01 Last Admin: 03/28/16 09:47 Dose: 30 mg Nystatin (Mycostatin Powder) 1 appl TP QID RADHIKA Stop: 04/27/16 09:01 Last Admin: 03/28/16 12:19 Dose: 1 appl Oxybutynin Chloride (Ditropan) 5 mg PO TID@0700,1400,2100 [facility] Stop: 04/26/16 21:01 Last Admin: 03/28/16 07:07 Dose: 5 mg Simvastatin (Zocor) 20 mg PO HS [facility] Stop: 04/26/16 21:01 Last Admin: 03/27/16 21:25 Dose: 20 mg Physical Examination - Exam Narrative: General: Nontoxic, no acute distress Psych: Alert and oriented HEENT: EOM grossly intact Lungs: Respirations unlabored, clear Abdomen: Moderately obese, benign Neuro: No obvious focal deficits, bedridden Extremities: Bilateral amputee. Good upper extremity dexterity including find dexterity Heart: Regular Skin: No obvious rashes Back: No true CVA tenderness Vital Signs: Vital Signs - Last Taken Temp 98.8 F 03/28/16 13:24 Pulse 62 03/28/16 13:24 Resp 16 03/28/16 13:24 BP 167/61 03/28/16 13:24 Pulse Ox 93 03/28/16 13:24 O2 Oxygen Delivery Method Room Air - Results and Findings: Narrative: #1 acute renal failure: She is within her baseline in terms of what I see in the computer, should improve if right-sided obstruction is contributing with stenting #2 right hydroureteronephrosis: Prior stone history so not sure if this is a congenital UPJ, something like a stricture. Bigger concern is she is diabetic and if infection on the backside could explain symptomatology. Becomes tricky situation 1 in which is better served to be a bit more aggressive secondary to diabetes/underlying renal failure and the possibility of infection. My recommendation is to go ahead with formal cystoscopy with bladder washing for cytology/potential biopsy if any pathology discovered followed by bilateral retrograde pyelograms with aspiration from right kidney to make sure no infection and consideration of stent if infection suspected. Risks discussed. I would proceed with diagnostic ureteroscopy at a different setting if does not become septic with procedure or deteriorate. Patient agreeable. We'll proceed later today. #3 possible recurrent UTIs: Going to be tricky to sort out his current setting if she is already on antibiotics. My recommendation going forward is if infection suspected needs catheterized UA not voided as high probability of contamination. If truly has bacteria and bladder can try something like methenamine hippurate which is bacteriostatic. Prophylactic antibiotics are going to be tricky secondary to her significant pre-existing renal failure. Her symptomatology is atypical and diabetes complicates things. It is possible that the cultures we are currently seeing are simply contamination and not true colonization. Obviously during today's procedure will get an idea from cystoscopy and from right upper tract aspiration as to whether or not this is truly infectious. Lab/Microbiology results last 24 hrs: Abnormal/Pending Laboratory Last 24 HRS 03/28/16 03/27/16 08:40 15:50 Chloride 108 H Carbon Dioxide 22.6 L BUN 43 H Creatinine 2.47 H 2.81 H Est GFR (Non-Af Amer) 20 L D Random Glucose 188 H D Calcium 11.7 H Culture 03/27/16 Unknown Urine Culture - Preliminary Urine,Clean Catch Gram Negative Bacilli Gram Negative Bacilli#2
[2016-03-28] MEDS: VANCOMYCIN HCL 1 GM in DEXTROSE 5 % IN WATER 250 ML IV SCH ×2 (15:09)
[2016-03-28] MEDS ORDERED: NORMAL SALINE 1,000 ML IV ONE ×2 (16:10→17:35)
--- NOTE | 2016-03-28 17:23 | OR ---
Operative Report - Dictated Report Narrative: Location: Main OR Anesthesia: General Surgeon: Dr. 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 Imaging consisting of noncontrast CT revealed right hydronephrosis with a thickened appearance to the renal pelvis and perirenal inflammation along with a mildly dilated left upper collecting system. No hydroureter. Clinically she was feeling better with IV vancomycin and ceftriaxone however concern for partial obstruction and colonization of the upper tracts exists and as such above- mentioned procedures indicated to maximally drain urinary system and attempt and diagnosis obstruction is functional/real. Description: Consent obtained. Patient brought to the operating room where general endotracheal anesthesia was induced. Placed in the dorsal lithotomy position. Prepped and draped. Timeout taken. Rigid cystoscope introduced into the bladder with ease and quick cystoscopy revealed no tumors, stones or suspicious lesions . Bladder had a significant inflamed appearance consistent with resolving cystitis cystica. At the very least I do believe she is colonized chronically. Right ureteric orifice more capacious than left. Bilateral retrogrades obtained and interpreted by Dr. Groves. Right ureter identified intubated with 5 [place] catheter and right retrograde obtained. 10-15 mL of Isovue was used to obtain retrograde. Distal mid and proximal ureter were really normal in caliber without stricture, filling defect or evidence of significant hydroureteronephrosis. At the level of the UPJ there was a unique funneling to the flow of contrast consistent with possible high insertion/true UPJ. Right kidney significantly hydronephrotic with blunting of calyces but no filling defects. I placed an angled Glidewire had a kind of unique course again I think the ureter inserts high based on its appearance. I was able to get into the dilated renal pelvis and initially placed a 6 x 26 double-J stent however I later converted to a 6 by multi length as I was not happy with how much stent was up in the dilated renal pelvis. There was debris emanating from that side again colonization. Left ureter identified intubated with 5 [place]ij[place] catheter and left retrograde obtained. Ureter was similarly nonhydronephrotic no filling defects and no evidence of strictures. On this side the level of UPJ obstruction if present was not as impressive. There was a bit of an abnormality in terms of the flow of contrast past the UPJ but I could not tell if this was because of air bubbles or again UPJ obstruction. Left renal pelvis was definitely dilated on this side as well. Calyces were not as blunted. If there is UPJ obstruction on this side it is not is clinically significant as the opposite side. Wire advanced and a 5 by multi length stent was placed again with some debris draining from that side. Bladder washing was then obtained I sent that for culture and cytology. I also sent for fungal culture. Real catheter replaced and placed to straight drainage. Specimen: Washing For cytology and culture EBL: 0 ml Condition: tolerated procedure Important findings: Evidence of bladder colonization/cystitis. Likely right UPJ with colonization, unsure on the left side but definite dilation and colonization on the left as well. Follow-up: Tricky situation. For now need to maintain on IV antibiotics with vancomycin and ceftriaxone. Current culture pending from my procedure but she is on broad-spectrum antibiotics so unlikely to grow anything out. It is very important that with next presumed infection a catheterized culture is obtained to see what organism is hanging out in the urinary tract. Voided urines should not be used given her body habitus and high probability of external contamination. Because of her underlying renal failure going to be tricky because of her underlying renal failure will be tricky to keep her decolonized. May consider referral to infectious disease to see if anything can be used bacteriostaticly or prophylactically. At the present time would have to assume systemic infection so would need 10-14 days total antibiotic therapy and based on resistance profile I don't see anything being reasonable orally with the exception of linezolid potentially. My plan is to proceed with diagnostic right ureteroscopy with possible balloon dilation of the UPJ versus biopsy depending on what I discover next Saturday. It may be that I simply remove the stents if nothing discovered ureteroscopically and proceed with MAG3 Lasix renal scan to truly document whether or not these are functional UPJs.
[2016-03-28] MEDS ORDERED: HYDROcodone/ACETAMINOPHEN 1 EACH TABLET PO ONE (17:44)
[2016-03-28] MEDS: SIMVASTATIN 20 MG TABLET PO SCH (20:15)
[2016-03-29] MEDS: HYDROcodone/ACETAMINOPHEN 1 EACH TABLET PO PRN ×2 (00:38→04:57)
[2016-03-29] MEDS: NORMAL SALINE 1,000 ML IV PRN ×2 (02:24→12:28)
[2016-03-29] MEDS: INSULIN LISPRO 100 UNITS/ML VIAL SC SCH ×3 (07:01→17:10)
[2016-03-29] MEDS: OXYBUTYNIN CHLORIDE 5 MG TABLET PO SCH ×3 (07:01→21:58)
--- NOTE | 2016-03-29 07:56 | PN ---
Subjective - Date and Time Seen Date: 03/29/16 Time: 07:55 Subjective Narrative: Was seen by Urology yesterday and had stenting. Afebrile. Objective - Review of Systems Generalized/Overall Review: Reports: Weakness. Denies: Chills, Fever EENTM: Reports: No Symptoms Reported Respiratory: Denies: Cough, Shortness of Breath Cardiac: Denies: Chest Pain, Edema, Palpitations Abdominal: Denies: Nausea, Vomiting Genitourinary Symptoms: Denies: Urgency, Frequency - Vitals Vitals: Last Vital Signs Temp 36.6 C 03/29/16 06:18 Pulse 64 03/29/16 06:18 Resp 20 03/29/16 06:18 BP 160/67 03/29/16 06:18 Pulse Ox 95 03/29/16 06:18 - Abnormal Lab Findings Abnormal Lab Findings: Abnormal Lab Results 03/28/16 Range/Units 08:40 Chloride 108 H (97-106) mmol/L Carbon Dioxide 22.6 L (24-32.6) mmol/L BUN 43 H (3-23) mg/dL Creatinine 2.47 H (0.4-1.4) mg/dL Est GFR (Non-Af Amer) 20 L D (60-130) mL/min Random Glucose 188 H D (70-110) mg/dL Calcium 11.7 H (7.9-10.9) mg/dL - Exam Constitutional: Present: Alert, Oriented x3, Cooperative ENT Exam: Present: hearing grossly normal Neck: Present: supple Cardiovascular/Chest: Present: no JVD, no murmur, irregularly irregular Abdomen: Present: Normal bowel sounds, soft, nontender, nondistended Extremity: Present: other - b/l BKA Cauti Physician Documentation - Urinary Catheter Management Uretheral (Real) Date of Insertion: 03/27/16 Time of Insertion: 21:30 Assessment/Plan - Problems/Diagnosis (1) Hydronephrosis Problem: Acute Qualifiers: Hydronephrosis type: unspecified Qualified Code(s): N13.30 - Unspecified hydronephrosis Narrative: s/p Cystoscopy and stenting (2) Urinary tract infection in elderly patient Problem: Acute Narrative: Gram negative on UCS- polymicrobial. Could be contaminant. She did have bladder wash on cystoscopy that was sent for cytology and UCS. will continue [facility] IV Rocephin and vanco for now. (3) CRF (chronic renal failure) Problem: Chronic Qualifiers: Chronic kidney disease stage: stage 4 (severe) Qualified Code(s): N18.4 - Chronic kidney disease, stage 4 (severe) Narrative: Cr improved (4) Peripheral vascular disease Problem: Chronic (5) Hypertension Problem: Chronic Qualifiers: Hypertension type: essential hypertension Qualified Code(s): I10 - Essential (primary) hypertension (6) Coronary artery disease Problem: Chronic Qualifiers: Coronary Disease-Associated Artery/Lesion type: bypass graft [place] vs. transplanted heart: [place] heart Associated angina: without angina Qualified Code(s): I25.810 - Atherosclerosis of coronary artery bypass graft(s) without angina pectoris (7) Atrial fibrillation Problem: Chronic Qualifiers: Atrial fibrillation type: chronic Qualified Code(s): I48.2 - Chronic atrial fibrillation
[2016-03-29] MEDS: AMIODARONE HCL 200 MG TABLET PO SCH (08:57)
[2016-03-29] MEDS: CARVEDILOL 6.25 MG TABLET PO SCH ×2 (08:57→21:59)
[2016-03-29] MEDS: DOCUSATE SODIUM 100 MG CAPSULE PO SCH (08:57)
[2016-03-29] MEDS: ALLOPURINOL 100 MG TABLET PO SCH (08:58)
[2016-03-29] MEDS: ISOSORBIDE MONONITRATE 30 MG TAB.SR.24H PO SCH (08:58)
[2016-03-29] MEDS: INSULIN GLARGINE,HUM.REC.ANLOG 100 UNITS/ML VIAL SC SCH (08:58)
[2016-03-29] MEDS: ASCORBIC ACID 500 MG TABLET PO SCH (08:58)
[2016-03-29] MEDS: NYSTATIN 15 APPL BTL TP SCH ×4 (08:58→22:07)
[2016-03-29] MEDS: VANCOMYCIN HCL 1 GM in DEXTROSE 5 % IN WATER 250 ML IV SCH ×2 (14:34)
[2016-03-29] MEDS: SIMVASTATIN 20 MG TABLET PO SCH (21:58)
[2016-03-30] MEDS: HYDROcodone/ACETAMINOPHEN 1 EACH TABLET PO PRN ×3 (00:59→21:27)
[2016-03-30] MEDS: NORMAL SALINE 1,000 ML IV PRN ×3 (01:10→21:37)
[2016-03-30] MEDS: INSULIN LISPRO 100 UNITS/ML VIAL SC SCH ×3 (06:38→16:25)
[2016-03-30] MEDS: OXYBUTYNIN CHLORIDE 5 MG TABLET PO SCH ×3 (06:38→21:19)
[2016-03-30 07:49] LABS: Anion Gap 11.4 mmol/L (6.8-13.8); BUN/Creatinine Ratio 15.9 (9.0-21.6); Calcium * 11.1 mg/dL (7.9-10.9); Carbon Dioxide 21.9 mmol/L (24-32.6); Estimated Creat Clear 27.8; Potassium 4.3 mmol/L (3.4-4.6)
--- NOTE | 2016-03-30 08:16 | PN ---
Subjective - Date and Time Seen Date: 03/30/16 Time: 08:05 Subjective Narrative: Feels better Objective - Review of Systems Generalized/Overall Review: Denies: Chills, Fever EENTM: Reports: No Symptoms Reported Respiratory: Denies: Cough, Shortness of Breath Cardiac: Denies: Chest Pain, Edema, Palpitations Abdominal: Denies: Nausea, Vomiting Genitourinary Symptoms: Reports: Frequency. Denies: Urgency Musculoskeletal Complaints: Reports: Joint Pain - Vitals Vitals: Last Vital Signs Temp 36.9 C 03/30/16 06:25 Pulse 54 L 03/30/16 06:25 Resp 16 03/30/16 06:25 BP 157/54 03/30/16 06:25 Pulse Ox 96 03/30/16 06:25 - Abnormal Lab Findings Abnormal Lab Findings: Abnormal Lab Results 03/30/16 Range/Units 07:30 Chloride 111 H (97-106) mmol/L Carbon Dioxide 21.9 L (24-32.6) mmol/L BUN 32 H (3-23) mg/dL Creatinine 2.01 H D (0.4-1.4) mg/dL Est GFR (Non-Af Amer) 26 L D (60-130) mL/min Calcium 11.1 H (7.9-10.9) mg/dL - Exam Constitutional: Present: Alert, Oriented x3, Cooperative ENT Exam: Present: hearing grossly normal Neck: Present: supple Breasts: Present: Exam deferred Respiratory: Present: decreased breath sounds, No rales, No wheezing Cardiovascular/Chest: Present: no JVD, no murmur, irregularly irregular Abdomen: Present: Normal bowel sounds, soft, nontender, nondistended Extremity: Present: other - b/l BKA Cauti Physician Documentation - Urinary Catheter Management Uretheral (Real) Date of Insertion: 03/27/16 Time of Insertion: 21:30 Assessment/Plan - Problems/Diagnosis (1) Hydronephrosis Problem: Acute Qualifiers: Hydronephrosis type: unspecified Qualified Code(s): N13.30 - Unspecified hydronephrosis Narrative: s/p stenting (2) Urinary tract infection in elderly patient Problem: Acute Narrative: E. Coli on clean catch, NG on bladder C & S , likely due to IV antibiotics already on board at thet time of collection. her urine C & S prior to to admission grew Enterococcus feacium. Will continue IV vanco and Rocephin for now. Possible discharge on Saturday with oral antibiotics. (3) CRF (chronic renal failure) Problem: Chronic Qualifiers: Chronic kidney disease stage: stage 4 (severe) Qualified Code(s): N18.4 - Chronic kidney disease, stage 4 (severe) Narrative: Cr continues to improve (4) Peripheral vascular disease Problem: Chronic (5) Hypertension Problem: Chronic Qualifiers: Hypertension type: essential hypertension Qualified Code(s): I10 - Essential (primary) hypertension (6) Coronary artery disease Problem: Chronic Qualifiers: Coronary Disease-Associated Artery/Lesion type: bypass graft [place] vs. transplanted heart: [place] heart Associated angina: without angina Qualified Code(s): I25.810 - Atherosclerosis of coronary artery bypass graft(s) without angina pectoris (7) Atrial fibrillation Problem: Chronic Qualifiers: Atrial fibrillation type: chronic Qualified Code(s): I48.2 - Chronic atrial fibrillation Narrative: with slow ventricular response. (8) Bradycardia Problem: Acute Narrative: usually in th 50's to 60's but had episodes of 30's-40's
[2016-03-30] MEDS: CARVEDILOL 3.125 MG TABLET PO SCH ×2 (09:37→21:20)
[2016-03-30] MEDS: ISOSORBIDE MONONITRATE 30 MG TAB.SR.24H PO SCH (09:38)
[2016-03-30] MEDS: ASCORBIC ACID 500 MG TABLET PO SCH (09:38)
[2016-03-30] MEDS: ALLOPURINOL 100 MG TABLET PO SCH (09:38)
[2016-03-30] MEDS: DOCUSATE SODIUM 100 MG CAPSULE PO SCH (09:39)
[2016-03-30] MEDS: HEPARIN SODIUM,PORCINE 5,000 UNITS/ML VIAL SC SCH ×2 (09:39→21:20)
[2016-03-30] MEDS: INSULIN GLARGINE,HUM.REC.ANLOG 100 UNITS/ML VIAL SC SCH (09:41)
[2016-03-30] MEDS: NYSTATIN 15 APPL BTL TP SCH ×4 (09:42→21:19)
[2016-03-30] MEDS ORDERED: VANCOMYCIN HCL LEVEL XX ONE (14:45)
[2016-03-30] MEDS: VANCOMYCIN HCL 1 GM in DEXTROSE 5 % IN WATER 250 ML IV SCH ×4 (16:06→21:56)
[2016-03-30] MEDS: SIMVASTATIN 20 MG TABLET PO SCH (21:19)
[2016-03-31] MEDS: HYDROcodone/ACETAMINOPHEN 1 EACH TABLET PO PRN (05:49)
[2016-03-31] MEDS: OXYBUTYNIN CHLORIDE 5 MG TABLET PO SCH ×3 (07:22→21:09)
[2016-03-31] MEDS: INSULIN LISPRO 100 UNITS/ML VIAL SC SCH ×3 (07:23→17:05)
[2016-03-31] MEDS: ISOSORBIDE MONONITRATE 30 MG TAB.SR.24H PO SCH (08:34)
[2016-03-31] MEDS: DOCUSATE SODIUM 100 MG CAPSULE PO SCH (08:34)
[2016-03-31] MEDS: ALLOPURINOL 100 MG TABLET PO SCH (08:34)
[2016-03-31] MEDS: ASCORBIC ACID 500 MG TABLET PO SCH (08:34)
[2016-03-31] MEDS: CARVEDILOL 3.125 MG TABLET PO SCH ×2 (08:35→21:08)
[2016-03-31] MEDS: INSULIN GLARGINE,HUM.REC.ANLOG 100 UNITS/ML VIAL SC SCH (08:36)
[2016-03-31] MEDS: NYSTATIN 15 APPL BTL TP SCH ×4 (08:36→21:10)
[2016-03-31] MEDS: HEPARIN SODIUM,PORCINE 5,000 UNITS/ML VIAL SC SCH ×2 (08:37→21:09)
--- NOTE | 2016-03-31 09:22 | PN ---
Subjective - Date and Time Seen Date: 03/31/16 Time: 09:16 Subjective Narrative: Complaining of rash on rh right thigh . Objective - Review of Systems Generalized/Overall Review: Reports: Weakness. Denies: Chills, Fever EENTM: Reports: No Symptoms Reported Respiratory: Reports: Cough. Denies: Shortness of Breath Cardiac: Denies: Chest Pain, Palpitations Abdominal: Denies: Nausea, Vomiting Genitourinary Symptoms: Reports: Frequency. Denies: Urgency Musculoskeletal Complaints: Reports: Joint Pain - Vitals Vitals: Last Vital Signs Temp 36.7 C 03/31/16 06:55 Pulse 77 03/31/16 08:35 Resp 20 03/31/16 06:55 BP 156/66 03/31/16 08:35 Pulse Ox 100 03/31/16 06:55 - Exam Constitutional: Present: Oriented x3, Cooperative ENT Exam: Present: hearing grossly normal Neck: Present: supple Breasts: Present: Exam deferred Respiratory: Present: decreased breath sounds, No rales, No wheezing Cardiovascular/Chest: Present: no JVD, no murmur, irregularly irregular Abdomen: Present: Normal bowel sounds, soft, nontender, nondistended Extremity: Present: other - b/l BKA Skin Exam: Present: skin rash - right thigh Cauti Physician Documentation - Urinary Catheter Management Uretheral (Real) Date of Insertion: 03/27/16 Time of Insertion: 21:30 Date of Removal: 03/30/16 Time of Removal: 09:28 Assessment/Plan - Problems/Diagnosis (1) Hydronephrosis Problem: Acute Qualifiers: Hydronephrosis type: unspecified Qualified Code(s): N13.30 - Unspecified hydronephrosis Narrative: s/p stenting (2) Urinary tract infection in elderly patient Problem: Acute Narrative: E.Coli on 03/27/2016 and Enterocococcus Feacium on 03/19/2016. Continue with IV antibiotics. Possible cahnge to oral antibiotics and possible discharge on Saturday. (3) CRF (chronic renal failure) Problem: Chronic Qualifiers: Chronic kidney disease stage: stage 4 (severe) Qualified Code(s): N18.4 - Chronic kidney disease, stage 4 (severe) (4) Peripheral vascular disease Problem: Chronic (5) Hypertension Problem: Chronic Qualifiers: Hypertension type: essential hypertension Qualified Code(s): I10 - Essential (primary) hypertension (6) Coronary artery disease Problem: Chronic Qualifiers: Coronary Disease-Associated Artery/Lesion type: bypass graft [place] vs. transplanted heart: [place] heart Associated angina: without angina Qualified Code(s): I25.810 - Atherosclerosis of coronary artery bypass graft(s) without angina pectoris (7) Atrial fibrillation Problem: Chronic Qualifiers: Atrial fibrillation type: chronic Qualified Code(s): I48.2 - Chronic atrial fibrillation (8) Bradycardia Problem: Acute (9) Rash Problem: Chronic Narrative: will start triamcinolone topical. [employer] has been consulted to look at her right prosthesis.
[2016-03-31] MEDS: NORMAL SALINE 1,000 ML IV PRN ×2 (09:35→21:51)
[2016-03-31] MEDS: VANCOMYCIN HCL 1 GM in DEXTROSE 5 % IN WATER 250 ML IV SCH ×2 (15:09)
[2016-03-31] MEDS: TRIAMCINOLONE ACETONIDE 80 APPL TUBE TP SCH (21:10)
[2016-03-31] MEDS: SIMVASTATIN 20 MG TABLET PO SCH (21:10)
[2016-04-01] MEDS: HYDROcodone/ACETAMINOPHEN 1 EACH TABLET PO PRN ×2 (01:40→13:55)
[2016-04-01] MEDS: INSULIN LISPRO 100 UNITS/ML VIAL SC SCH ×3 (07:32→17:22)
[2016-04-01] MEDS: OXYBUTYNIN CHLORIDE 5 MG TABLET PO SCH ×3 (07:33→21:14)
[2016-04-01] MEDS: NORMAL SALINE 1,000 ML IV PRN ×2 (08:38→21:10)
[2016-04-01] MEDS: ISOSORBIDE MONONITRATE 30 MG TAB.SR.24H PO SCH (09:46)
[2016-04-01] MEDS: ALLOPURINOL 100 MG TABLET PO SCH (09:46)
[2016-04-01] MEDS: DOCUSATE SODIUM 100 MG CAPSULE PO SCH (09:46)
[2016-04-01] MEDS: ASCORBIC ACID 500 MG TABLET PO SCH (09:46)
[2016-04-01] MEDS: CARVEDILOL 3.125 MG TABLET PO SCH (09:49)
[2016-04-01] MEDS: HEPARIN SODIUM,PORCINE 5,000 UNITS/ML VIAL SC SCH ×2 (09:50→21:14)
[2016-04-01] MEDS: INSULIN GLARGINE,HUM.REC.ANLOG 100 UNITS/ML VIAL SC SCH (09:53)
[2016-04-01] MEDS: TRIAMCINOLONE ACETONIDE 80 APPL TUBE TP SCH ×2 (09:53→21:14)
[2016-04-01] MEDS: NYSTATIN 15 APPL BTL TP SCH ×4 (09:53→21:14)
--- NOTE | 2016-04-01 10:29 | PN ---
Subjective - Date and Time Seen Date: 04/01/16 - n Time: 10:27 Subjective Narrative: Continues to feel stronger. Objective - Review of Systems Generalized/Overall Review: Reports: Weight loss. Denies: Chills, Fever EENTM: Reports: No Symptoms Reported Respiratory: Denies: Cough, Shortness of Breath Abdominal: Denies: Nausea, Vomiting Genitourinary Symptoms: Reports: Urgency, Frequency Musculoskeletal Complaints: Reports: Joint Pain - Vitals Vitals: Last Vital Signs Temp 36.9 C 04/01/16 10:14 Pulse 57 L 04/01/16 10:14 Resp 20 04/01/16 10:14 BP 161/74 04/01/16 10:14 Pulse Ox 98 04/01/16 10:14 - Exam Constitutional: Present: Alert, Oriented x3, Cooperative ENT Exam: Present: hearing grossly normal Neck: Present: supple Breasts: Present: Exam deferred Respiratory: Present: decreased breath sounds, No rales, No wheezing Cardiovascular/Chest: Present: no JVD, no murmur, irregularly irregular Abdomen: Present: Normal bowel sounds, soft, nontender, nondistended Extremity: Present: other - b/l BKA Cauti Physician Documentation - Urinary Catheter Management Uretheral (Real) Date of Insertion: 03/27/16 Time of Insertion: 21:30 Date of Removal: 03/30/16 Time of Removal: 09:28 Assessment/Plan - Problems/Diagnosis (1) Hydronephrosis Problem: Acute Qualifiers: Hydronephrosis type: unspecified Qualified Code(s): N13.30 - Unspecified hydronephrosis Narrative: s/p stenting (2) Urinary tract infection in elderly patient Problem: Acute Narrative: on IV Rocephin and IV vanco Day # 6. (3) CRF (chronic renal failure) Problem: Chronic Qualifiers: Chronic kidney disease stage: stage 4 (severe) Qualified Code(s): N18.4 - Chronic kidney disease, stage 4 (severe) (4) Peripheral vascular disease Problem: Chronic (5) Hypertension Problem: Chronic Qualifiers: Hypertension type: essential hypertension Qualified Code(s): I10 - Essential (primary) hypertension (6) Coronary artery disease Problem: Chronic Qualifiers: Coronary Disease-Associated Artery/Lesion type: bypass graft [place] vs. transplanted heart: [place] heart Associated angina: without angina Qualified Code(s): I25.810 - Atherosclerosis of coronary artery bypass graft(s) without angina pectoris (7) Atrial fibrillation Problem: Chronic Qualifiers: Atrial fibrillation type: chronic Qualified Code(s): I48.2 - Chronic atrial fibrillation (8) Bradycardia Problem: Acute Narrative: tele showing junctional rhythm (50"s) with a long pause- asymptomatic. Amiodarone stopped 2 days ago due to AFib with slow ventricular response in the 30's and Coreg decreased to 3.125 mg PO BID. Will continue telemetry and will need a cardiology consult in am. (9) Rash Problem: Chronic Narrative: improved
[2016-04-01] MEDS: VANCOMYCIN HCL 1 GM in DEXTROSE 5 % IN WATER 250 ML IV SCH ×2 (14:55)
[2016-04-01] MEDS: SIMVASTATIN 20 MG TABLET PO SCH (21:15)
[2016-04-02] MEDS: HYDROcodone/ACETAMINOPHEN 1 EACH TABLET PO PRN ×2 (00:41→14:23)
[2016-04-02 05:32] LABS: Hematocrit 28.3 % (37.0-47.0); Hemoglobin 9.3 gm/dL (12.5-16.0); Mean Cell Volume 93.1 fl (78-100); Mean Corpuscular Hemoglobin 30.6 pg (27-31); Mean Corpuscular Hgb Conc 32.9 g/dl (32-36); Neutrophil # 4.3 K/mm3 (1.3-6.0); Neutrophil % 74.5 % (42-75.0); Platelet Count 116 K/mm3 (150-450); Red Blood Count 3.04 M/mm3 (4.2-5.4); Red Cell Distribution Width 13.9 % (11.5-14.0); White Blood Count 5.7 K/mm3 (4.0-10.5)
[2016-04-02 05:49] LABS: Anion Gap 11.6 mmol/L (6.8-13.8); BUN/Creatinine Ratio 13.9 (9.0-21.6); Calcium * 11.4 mg/dL (7.9-10.9); Carbon Dioxide 22.9 mmol/L (24-32.6); Estimated Creat Clear 33.6; Potassium 4.5 mmol/L (3.4-4.6)
[2016-04-02] MEDS: OXYBUTYNIN CHLORIDE 5 MG TABLET PO SCH ×3 (06:11→21:47)
[2016-04-02] MEDS: INSULIN LISPRO 100 UNITS/ML VIAL SC SCH ×3 (06:17→16:49)
[2016-04-02] MEDS: NYSTATIN 15 APPL BTL TP SCH ×4 (09:52→21:48)
[2016-04-02] MEDS: DOCUSATE SODIUM 100 MG CAPSULE PO SCH (09:53)
[2016-04-02] MEDS: ASCORBIC ACID 500 MG TABLET PO SCH (09:53)
[2016-04-02] MEDS: ISOSORBIDE MONONITRATE 30 MG TAB.SR.24H PO SCH (09:53)
[2016-04-02] MEDS: LOSARTAN POTASSIUM 50 MG TABLET PO SCH (09:53)
[2016-04-02] MEDS: CARVEDILOL 3.125 MG TABLET PO SCH ×2 (09:53→21:46)
[2016-04-02] MEDS: ALLOPURINOL 100 MG TABLET PO SCH (09:54)
[2016-04-02] MEDS: TRIAMCINOLONE ACETONIDE 80 APPL TUBE TP SCH ×2 (09:55→21:48)
[2016-04-02] MEDS: INSULIN GLARGINE,HUM.REC.ANLOG 100 UNITS/ML VIAL SC SCH (10:38)
[2016-04-02] MEDS: HEPARIN SODIUM,PORCINE 5,000 UNITS/ML VIAL SC SCH ×2 (10:38→21:47)
[2016-04-02] MEDS ORDERED: VANCOMYCIN HCL LEVEL XX ONE (14:45)
--- NOTE | 2016-04-02 15:03 | PN ---
Subjective - Date and Time Seen Date: 04/02/16 Time: 14:58 Subjective Narrative: Patient is asymptomatic. Her right BK prosthesis is locked Objective - Review of Systems Generalized/Overall Review: Denies: Chills, Fever EENTM: Reports: No Symptoms Reported Respiratory: Denies: Shortness of Breath Cardiac: Denies: Chest Pain, Edema, Palpitations Abdominal: Denies: Nausea, Vomiting Genitourinary Symptoms: Reports: Itching. Denies: Urgency, Frequency Musculoskeletal Complaints: Reports: Joint Pain - Vitals Vitals: Last Vital Signs Temp 37.0 C 04/02/16 09:46 Pulse 59 L 04/02/16 09:53 Resp 16 04/02/16 09:46 BP 193/71 04/02/16 09:53 Pulse Ox 100 04/02/16 09:46 - Abnormal Lab Findings Abnormal Lab Findings: Abnormal Lab Results 04/02/16 04/02/16 Range/Units 04:35 04:35 RBC 3.04 L (4.2-5.4) M/mm3 Hgb 9.3 L (12.5-16.0) gm/dL Hct 28.3 L (37.0-47.0) % Plt Count 116 L (150-450) K/mm3 MPV 11.0 H (6.0-9.5) fl Immature Gran % (Auto) 0.50 H (0.001-0.429) % Lymphocytes % 16.4 L (20-51) % Lymphocytes # 0.9 L (1.5-3.5) k/mm3 Chloride 110 H (97-106) mmol/L Carbon Dioxide 22.9 L (24-32.6) mmol/L Creatinine 1.66 H (0.4-1.4) mg/dL Est GFR (Non-Af Amer) 32 L D (60-130) mL/min Calcium 11.4 H (7.9-10.9) mg/dL - Exam Constitutional: Present: Alert, Oriented x3, Cooperative ENT Exam: Present: hearing grossly normal Neck: Present: supple Breasts: Present: Exam deferred Respiratory: Present: lungs clear, No rales, No wheezing Cardiovascular/Chest: Present: no JVD, no murmur, irregularly irregular Abdomen: Present: Normal bowel sounds, soft, nontender, nondistended Extremity: Present: other - positive b/l BKA Cauti Physician Documentation - Urinary Catheter Management Uretheral (Real) Date of Insertion: 03/27/16 Time of Insertion: 21:30 Date of Removal: 03/30/16 Time of Removal: 09:28 Assessment/Plan - Problems/Diagnosis (1) Hydronephrosis Problem: Acute Qualifiers: Hydronephrosis type: unspecified Qualified Code(s): N13.30 - Unspecified hydronephrosis Narrative: s/p Stenting (2) Urinary tract infection in elderly patient Problem: Acute Narrative: Will stop IV vanco tomorrow for her E. Fecium and continue IV Rocephin while she is waiting for [employer] to come and fix her prosthetics- likely Saturday. (3) CRF (chronic renal failure) Problem: Chronic Qualifiers: Chronic kidney disease stage: stage 4 (severe) Qualified Code(s): N18.4 - Chronic kidney disease, stage 4 (severe) (4) Peripheral vascular disease Problem: Chronic (5) Hypertension Problem: Chronic Qualifiers: Hypertension type: essential hypertension Qualified Code(s): I10 - Essential (primary) hypertension (6) Coronary artery disease Problem: Chronic Qualifiers: Coronary Disease-Associated Artery/Lesion type: bypass graft [place] vs. 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 (9) Rash Problem: Chronic Narrative: improved
[2016-04-02] MEDS: VANCOMYCIN HCL 1 GM in DEXTROSE 5 % IN WATER 250 ML IV SCH ×2 (15:32)
[2016-04-02] MEDS: SIMVASTATIN 20 MG TABLET PO SCH (21:48)
[2016-04-03] MEDS: HYDROcodone/ACETAMINOPHEN 1 EACH TABLET PO PRN (04:04)
[2016-04-03] MEDS: INSULIN LISPRO 100 UNITS/ML VIAL SC SCH ×3 (07:30→16:51)
[2016-04-03] MEDS: OXYBUTYNIN CHLORIDE 5 MG TABLET PO SCH ×3 (07:32→20:31)
[2016-04-03] MEDS: NYSTATIN 15 APPL BTL TP SCH ×4 (09:40→20:32)
[2016-04-03] MEDS: TRIAMCINOLONE ACETONIDE 80 APPL TUBE TP SCH ×2 (09:40→20:32)
[2016-04-03] MEDS: DOCUSATE SODIUM 100 MG CAPSULE PO SCH (09:40)
[2016-04-03] MEDS: INSULIN GLARGINE,HUM.REC.ANLOG 100 UNITS/ML VIAL SC SCH (09:41)
[2016-04-03] MEDS: LOSARTAN POTASSIUM 50 MG TABLET PO SCH (09:41)
[2016-04-03] MEDS: ALLOPURINOL 100 MG TABLET PO SCH (09:41)
[2016-04-03] MEDS: ISOSORBIDE MONONITRATE 30 MG TAB.SR.24H PO SCH (09:41)
[2016-04-03] MEDS: CARVEDILOL 3.125 MG TABLET PO SCH ×2 (09:41→20:32)
[2016-04-03] MEDS: HEPARIN SODIUM,PORCINE 5,000 UNITS/ML VIAL SC SCH ×2 (09:41→20:32)
[2016-04-03] MEDS: ASCORBIC ACID 500 MG TABLET PO SCH (09:41)
--- NOTE | 2016-04-03 17:21 | PN ---
Subjective - Date and Time Seen Date: 04/03/16 Time: 17:14 Subjective Narrative: [employer] has fixed her BK prosthetic. The HR is in in the 50's-60's. Objective - Review of Systems Generalized/Overall Review: Reports: Weakness. Denies: Chills, Fever EENTM: Reports: No Symptoms Reported Respiratory: Denies: Cough, Shortness of Breath Cardiac: Denies: Chest Pain, Edema, Palpitations Abdominal: Denies: Nausea, Vomiting Genitourinary Symptoms: Denies: Urgency, Frequency Musculoskeletal Complaints: Reports: Joint Pain - Vitals Vitals: Last Vital Signs Temp 36.9 C 04/03/16 15:12 Pulse 61 04/03/16 15:12 Resp 20 04/03/16 15:12 BP 156/55 04/03/16 15:12 Pulse Ox 97 04/03/16 15:12 - Exam Constitutional: Present: Alert, Oriented x3, Cooperative ENT Exam: Present: hearing grossly normal Neck: Present: supple Respiratory: Present: normal breath sounds, No rales, No wheezing Cardiovascular/Chest: Present: no JVD, no murmur, irregularly irregular Abdomen: Present: Normal bowel sounds, soft, nontender, nondistended Extremity: Present: other - b/l BKA Cauti Physician Documentation - Urinary Catheter Management Uretheral (Real) Date of Insertion: 03/27/16 Time of Insertion: 21:30 Date of Removal: 03/30/16 Time of Removal: 09:28 Assessment/Plan - Problems/Diagnosis (1) Hydronephrosis Problem: Acute Qualifiers: Hydronephrosis type: unspecified Qualified Code(s): N13.30 - Unspecified hydronephrosis (2) Urinary tract infection in elderly patient Problem: Acute (3) CRF (chronic renal failure) Problem: Chronic Qualifiers: Chronic kidney disease stage: stage 4 (severe) Qualified Code(s): N18.4 - Chronic kidney disease, stage 4 (severe) (4) Peripheral vascular disease Problem: Chronic (5) Hypertension Problem: Chronic Qualifiers: Hypertension type: essential hypertension Qualified Code(s): I10 - Essential (primary) hypertension (6) Coronary artery disease Problem: Chronic Qualifiers: Coronary Disease-Associated Artery/Lesion type: bypass graft [place] vs. transplanted heart: [place] heart Associated angina: without angina Qualified Code(s): I25.810 - Atherosclerosis of coronary artery bypass graft(s) without angina pectoris (7) Atrial fibrillation Problem: Chronic Qualifiers: Atrial fibrillation type: chronic Qualified Code(s): I48.2 - Chronic atrial fibrillation (8) Bradycardia Problem: Acute Narrative: improved. EKG and tele strip shown to Dr. Schmid- he agrees to keep her on lower dose of her Coreg (3.125 mg bid from 6.25 mg BID )and to restart her amiodarone at a lower dose (100 mg PO qd from 200 m). If not working consider pacemaker placement. (9) Rash Problem: Resolved
[2016-04-03] MEDS: SIMVASTATIN 20 MG TABLET PO SCH (20:32)
[2016-04-04] MEDS: INSULIN LISPRO 100 UNITS/ML VIAL SC SCH ×3 (07:39→17:39)
[2016-04-04] MEDS: OXYBUTYNIN CHLORIDE 5 MG TABLET PO SCH ×3 (07:40→20:10)
[2016-04-04] MEDS: CARVEDILOL 3.125 MG TABLET PO SCH ×2 (09:36→20:10)
[2016-04-04] MEDS: AMIODARONE HCL 200 MG TABLET PO SCH (09:36)
[2016-04-04] MEDS: TRIAMCINOLONE ACETONIDE 80 APPL TUBE TP SCH ×2 (09:37→20:11)
[2016-04-04] MEDS: LOSARTAN POTASSIUM 50 MG TABLET PO SCH (09:37)
[2016-04-04] MEDS: ISOSORBIDE MONONITRATE 30 MG TAB.SR.24H PO SCH (09:37)
[2016-04-04] MEDS: ASCORBIC ACID 500 MG TABLET PO SCH (09:37)
[2016-04-04] MEDS: HEPARIN SODIUM,PORCINE 5,000 UNITS/ML VIAL SC SCH ×2 (09:37→20:10)
[2016-04-04] MEDS: ALLOPURINOL 100 MG TABLET PO SCH (09:37)
[2016-04-04] MEDS: DOCUSATE SODIUM 100 MG CAPSULE PO SCH (09:37)
[2016-04-04] MEDS: NYSTATIN 15 APPL BTL TP SCH ×4 (09:38→20:11)
[2016-04-04] MEDS: INSULIN GLARGINE,HUM.REC.ANLOG 100 UNITS/ML VIAL SC SCH (10:37)
--- NOTE | 2016-04-04 12:13 | DS ---
(1) Hydronephrosis Diagnosis(s): for removal of stents today. Problem: Acute Qualifiers: Hydronephrosis type: unspecified Qualified Code(s): N13.30 - Unspecified hydronephrosis (2) Urinary tract infection in elderly patient Diagnosis(s): E.Coli . Problem: Acute (3) CRF (chronic renal failure) Problem: Chronic Qualifiers: Chronic kidney disease stage: stage 4 (severe) Qualified Code(s): N18.4 - Chronic kidney disease, stage 4 (severe) (4) Peripheral vascular disease Problem: Chronic (5) Hypertension Problem: Chronic Qualifiers: Hypertension type: essential hypertension Qualified Code(s): I10 - Essential (primary) hypertension (6) Coronary artery disease Problem: Chronic Qualifiers: Coronary Disease-Associated Artery/Lesion type: bypass graft [place] vs. transplanted heart: [place] heart Associated angina: without angina Qualified Code(s): I25.810 - Atherosclerosis of coronary artery bypass graft(s) without angina pectoris (7) Atrial fibrillation Problem: Chronic Qualifiers: Atrial fibrillation type: chronic Qualified Code(s): I48.2 - Chronic atrial fibrillation (8) Bradycardia Diagnosis(s): discussed case with Dr. Schmid- recommended top decrease amodarone to 100 mg PO qd form 200 and Coreg form 6.25 BID to 3.125 BID. Id continues to have arrythmia , she is possibly a candidate for pacemaker. 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 One and one -half weeks [employer] , patient started to have signs and symptoms of urinary tract infection and was seen in the emergency room. She started on Cipro. 5 days ago the emergency room called her and changed her antibiotic to Macrobid as her culture was growing Enterococcus feacium sensitive to Nitrofurantoin and Vancomycin. For the last 4 days she has been feeling weak so much so that today patient fell down as she was not able to hold herself up with her walker. She was brought to the emergency room where a CT scan of her abdomen showed mild to moderate right hydronephrosis, with transition point in the ureter pelvic junction without evidence of stone. She also had bladder wall thickening likely cystitis and a large amount of stool retention as well as an 8 mm pulmonary nodule. Her white blood cell count was 6.1 Her creatinine was 2.89. She was then admitted for further evaluation. She did have a recent history of stenting for hydronephrosis due to stone in [facility] last December. She was started on IV Vanco for her Enterococcus Feacium and IV rocephin was started . Urolgy was consulted and they did stentings. Her culature grew E. Coli sensitive to her Rocephin. Her IV Vanco was stopped. She had her stents removed but replaced with new ones. She is stable to be discharged today. . Procedures Performed: see notes below List Procedures: cystoscopy with bilateral ureteral pyelograms and stentings. Discharge Disposition: Home self care Disposition: Home self-care Condition: Fair Discharge Activity: Activity as tolerated Discharge Diet: Low salt, Low fat/chol Referrals: Samantha Watson MD [Primary Care Provider] - Additional Patient Instructions (free text): Follow up with PCP in 1 week. Follow up with Urology in 3 weeks. Prescriptions (Any new or edited meds): Acetaminophen [Tylenol] 650 mg PO Q6H PRN #30 tablet PRN Reason: Mild Pain Amiodarone HCl [Cordarone] 100 mg PO DAILY #60 tablet Carvedilol [Coreg] 3.125 mg PO BID #60 tablet Cefuroxime Axetil [Cefuroxime] 500 mg PO BIDAC #14 tablet Losartan Potassium [Cozaar] 50 mg PO DAILY #30 tablet Complete Home Medications List: Complete Home Medication List: Allopurinol [Zyloprim] 100 mg PO DAILY 12/28/15 Ascorbic Acid [Vitamin C] 500 mg PO DAILY 12/28/15 Docusate Sodium [Colace] 100 mg PO DAILY 12/28/15 Insulin Aspart [Novolog] 5 units SC TIDWM 12/28/15 Insulin Glargine,Hum.rec.anlog [Lantus] 28 units SC DAILY 12/28/15 Isosorbide Mononitrate [Imdur] 30 mg PO DAILY 12/28/15 Oxybutynin Chloride [Ditropan] 5 mg PO TID 12/28/15 Rivaroxaban [Xarelto] 15 mg PO HS 12/28/15 Simvastatin [Zocor] 20 mg PO DAILY 12/28/15 Acetaminophen [Tylenol] 650 mg PO Q6H PRN #30 tablet 04/04/16 Amiodarone HCl [Cordarone] 100 mg PO DAILY #60 tablet 04/04/16 Carvedilol [Coreg] 3.125 mg PO BID #60 tablet 04/04/16 Cefuroxime Axetil [Cefuroxime] 500 mg PO BIDAC #14 tablet 04/04/16 Losartan Potassium [Cozaar] 50 mg PO DAILY #30 tablet 04/04/16 Amb Orders for Discharge: Basic Metabolic Panel Time Frame: 1 Week, Location: Determined By Patient CBC Time Frame: 1 Week, Location: Determined By Patient
[2016-04-04] MEDS ORDERED: NORMAL SALINE 1,000 ML IV ONE (15:00)
--- NOTE | 2016-04-04 15:59 | OR ---
Operative Report - Dictated Report Narrative: Location: Main OR Anesthesia: General Surgeon: Dr. Goncalves Preoperative diagnosis: Bilateral ureteral obstruction Postoperative diagnosis: Same, evidence of bilateral chronic upper tract colonization with what appears to be a lateral UPJ obstruction I do believe clinically significant Procedure: #1 Cystoscopy with removal of bilateral double-J stents, placement of new 7 by multi length double-J stents, aspiration of urine for culture from bladder including angle culture #2 bilateral diagnostic ureteroscopy with right ureteral washing for cytology and bacterial/fungal cultures Indications: 70-year-old diabetic female with renal failure and CT revealing significant right hydronephrosis with mild her left hydronephrosis with concern for obstruction and some evidence of inflammatory thickening of the mucosa concerning for colonization. Patient was previously stented and has been on IV and a miotics with significant improvement in symptoms and best creatinine she has had in the long time at 1.6 indicating this is probably significant obstruction/colonization Description: I had an extended discussion with patient and family preoperatively in regards to what I felt was going on and to update them that the creatinine has improved significantly with both stents. I believe this a combination of both colonization and partial obstruction along with her comorbidities that has led to this deterioration. I am concerned that she is going to remain chronically colonized and will be difficult to eradicate. We talked about goals of today's procedures which were mainly to assess the upper tracts make sure nothing significant going on, get an idea as to the degree of UPJ obstruction, I did discuss balloon dilation but I am hesitant to perform that in her as I think decolonization will still be an issue and with stents she has done just fine so the other discussion was potentially leaving kidneys drained with stents which would be changed every 3-12 months depending on the type of stent and up using. I explained this will not prevent recurrent infection/colonization but with drainage patient stented do better even if colonized. I did discuss consideration of surgical correction although somewhat risky in her with diabetes and age. In the end I left it ultimately up to the patient and daughter in regards to how aggressive they wanted to be. Both of us agreed that stent with periodic exchange and consideration of left stent removal if I felt the obstruction was in significant would be her best bet. . Patient brought to the operating room where general endotracheal anesthesia was induced. Placed in the dorsal lithotomy position. Prepped and draped. Timeout taken. Rigid cystoscope introduced into the bladder with ease and quick cystoscopy revealed no tumors, stones or suspicious lesions . There was still debris in the bladder and as such aspiration was obtained sent for culture including fungal culture Both stents were grasped and withdrawn per urethra. Super Stiff wire was advanced up the right kidney first. 12/14 access sheath was advanced without any resistance, wire secured. Flexible ureteroscope introduced and navigated proximally. I had no trouble running the scope up to the renal pelvis however the proximal ureter does have some redundancy and there is an obstructing portion that just looks different than the rest. I injected contrast through the scope after obtaining a washing from that side which I sent for cytology and cultures. There is some inflamed mucosa and I do believe she is chronically colonized. I did not see anything worth of biopsies I suspect this is all infectious/inflammatory. Contrast injection revealed significant hydronephrosis. Ureter caliber proximally was narrowed the rest of the ureter looked okay. I withdrew the scope down the ureter leaving the wire in place and successfully placed a 7 by multi length right-sided stent. Attention was turned to the left stent, wire advanced, 14 sheath metal little more resistance at several portions and that ureter but with slow constant pressure was able to get to the mid ureter. Wire secured. Scope introduced and navigated proximally. Similar findings on this side although with contrast injection the dilation of the kidney on this side was significantly less. There was more debris on this side and more erythema but no concerning lesions worth biopsying. On withdrawal of the ureteroscope there are several narrow areas along the ureter but again no trouble with scope. Over wire placed a 7 by multi length stent on this side as well. Bladder drained Specimen: Bladder aspiration for bacterial/fungal culture. Right upper tract washing for cytology and bacterial/fungal culture. EBL: 5 ml Condition: Patient tolerated Important findings: Entire urinary tract appears to be colonized by bacteria or fungus secondary likely to diabetes and prior obstruction. There was inflammatory change up both collecting systems. I do believe obstruction is real especially on the right. Both sides were successfully stented and the plan will be to discontinue antibiotic therapy. See how she does from a creatinine and symptomatic infection standpoint. Very important that only catheterized urines be used going forward. I am going to place her on methenamine hippurate 1 g twice a day twice a day in an effort to keep colonization at a minimum and prevent symptomatic infection. Provided her creatinine stays below 2-1/2 there should be excretion and it hopefully will help Follow-up: I will set up a follow-up for 3-4 weeks with ultrasound, BMP and catheterized UA to be done in the office
[2016-04-04] MEDS: SIMVASTATIN 20 MG TABLET PO SCH (20:11)
[2016-04-04] MEDS: HYDROcodone/ACETAMINOPHEN 1 EACH TABLET PO PRN (23:46)
[2016-04-05] MEDS: OXYBUTYNIN CHLORIDE 5 MG TABLET PO SCH ×2 (06:46→13:03)
[2016-04-05] MEDS: INSULIN LISPRO 100 UNITS/ML VIAL SC SCH ×2 (06:46→13:00)
[2016-04-05] MEDS: HYDROcodone/ACETAMINOPHEN 1 EACH TABLET PO PRN (06:49)
[2016-04-05] MEDS: INSULIN GLARGINE,HUM.REC.ANLOG 100 UNITS/ML VIAL SC SCH (08:34)
[2016-04-05] MEDS: LOSARTAN POTASSIUM 50 MG TABLET PO SCH (08:36)
[2016-04-05] MEDS: ASCORBIC ACID 500 MG TABLET PO SCH (08:36)
[2016-04-05] MEDS: ALLOPURINOL 100 MG TABLET PO SCH (08:36)
[2016-04-05] MEDS: NYSTATIN 15 APPL BTL TP SCH ×2 (08:37→13:01)
[2016-04-05] MEDS: DOCUSATE SODIUM 100 MG CAPSULE PO SCH (08:37)
[2016-04-05] MEDS: HEPARIN SODIUM,PORCINE 5,000 UNITS/ML VIAL SC SCH (08:37)
[2016-04-05] MEDS: AMIODARONE HCL 200 MG TABLET PO SCH (08:37)
[2016-04-05] MEDS: TRIAMCINOLONE ACETONIDE 80 APPL TUBE TP SCH (08:37)
[2016-04-05] MEDS: ISOSORBIDE MONONITRATE 30 MG TAB.SR.24H PO SCH (08:37)
[2016-04-05] MEDS: CARVEDILOL 3.125 MG TABLET PO SCH (08:37)
[2016-04-05] MEDS ORDERED: CEFUROXIME AXETIL 500 MG TABLET PO SCH (09:00)
[2016-04-05] MEDS ORDERED: FLUCONAZOLE IV SCH (10:15)
[2016-04-05] MEDS ORDERED: SALINE IV SCH (10:15)
[2016-04-05] MEDS ORDERED: ISO OSM IV SCH (10:15)
[2016-04-05 10:40] VITALS: BP 117/45
--- NOTE | 2016-04-05 12:10 | DS ---
(1) Hydronephrosis Diagnosis(s): s/p stenting Problem: Acute Qualifiers: Hydronephrosis type: unspecified Qualified Code(s): N13.30 - Unspecified hydronephrosis (2) Urinary tract infection in elderly patient Diagnosis(s): E.Coli. Positive yeast on last wash. Problem: Acute (3) CRF (chronic renal failure) Diagnosis(s): improved from Stage IV Problem: Chronic Qualifiers: Chronic kidney disease stage: stage 3 (moderate) Qualified Code(s): N18.3 - Chronic kidney disease, stage 3 (moderate) (4) Peripheral vascular disease Problem: Chronic (5) Hypertension Problem: Chronic Qualifiers: Hypertension type: essential hypertension Qualified Code(s): I10 - Essential (primary) hypertension (6) Coronary artery disease Problem: Chronic Qualifiers: Coronary Disease-Associated Artery/Lesion type: bypass graft [place] vs. transplanted heart: [place] heart Associated angina: without angina Qualified Code(s): I25.810 - Atherosclerosis of coronary artery bypass graft(s) without angina pectoris (7) Atrial fibrillation Problem: Chronic Qualifiers: Atrial fibrillation type: chronic Qualified Code(s): I48.2 - Chronic atrial fibrillation (8) Bradycardia Diagnosis(s): Initially we stopped her amiodarone and decreaase her Coreg by 1/2. Dr. Schmid recommended decreasing Amiodarone and Coreg by 1/2 strength Problem: Acute (9) Rash Problem: Resolved Procedures Performed: see notes below List Procedures: cystoscopy with retrograde pyelograms and stentings Discharge Disposition: Home self care Disposition: Home self-care Condition: Fair Discharge Activity: Activity as tolerated Discharge Diet: Low salt, Low fat/chol Referrals: Samantha Watson MD [Primary Care Provider] - Problem Oriented Discharge Instructions to Patient/Family: Hydronephrosis Additional Patient Instructions (free text): Follow up with PCP in 1 week. Follow up with Urology, Dr. De La Torre on in 3 weeks. Prescriptions (Any new or edited meds): Acetaminophen [Tylenol] 650 mg PO Q6H PRN #30 tablet PRN Reason: Mild Pain Amiodarone HCl [Cordarone] 100 mg PO DAILY #60 tablet Carvedilol [Coreg] 3.125 mg PO BID #60 tablet Carvedilol [Coreg] 3.125 mg PO BID #60 tablet Cefuroxime Axetil [Ceftin] 500 mg PO BID #14 tablet Cefuroxime Axetil [Cefuroxime] 500 mg PO BIDAC #14 tablet Fluconazole [Diflucan] 100 mg PO DAILY #14 tab Losartan Potassium [Cozaar] 50 mg PO DAILY #30 tablet Methenamine Hippurate 1 gm PO BID #14 tablet Complete Home Medications List: Complete Home Medication List: Allopurinol [Zyloprim] 100 mg PO DAILY 12/28/15 Ascorbic Acid [Vitamin C] 500 mg PO DAILY 12/28/15 Docusate Sodium [Colace] 100 mg PO DAILY 12/28/15 Insulin Aspart [Novolog] 5 units SC TIDWM 12/28/15 Insulin Glargine,Hum.rec.anlog [Lantus] 28 units SC DAILY 12/28/15 Isosorbide Mononitrate [Imdur] 30 mg PO DAILY 12/28/15 Oxybutynin Chloride [Ditropan] 5 mg PO TID 12/28/15 Rivaroxaban [Xarelto] 15 mg PO HS 12/28/15 Simvastatin [Zocor] 20 mg PO DAILY 12/28/15 Acetaminophen [Tylenol] 650 mg PO Q6H PRN #30 tablet 04/04/16 Amiodarone HCl [Cordarone] 100 mg PO DAILY #60 tablet 04/04/16 Carvedilol [Coreg] 3.125 mg PO BID #60 tablet 04/04/16 Cefuroxime Axetil [Cefuroxime] 500 mg PO BIDAC #14 tablet 04/04/16 Losartan Potassium [Cozaar] 50 mg PO DAILY #30 tablet 04/04/16 Carvedilol [Coreg] 3.125 mg PO BID #60 tablet 04/05/16 Cefuroxime Axetil [Ceftin] 500 mg PO BID #14 tablet 04/05/16 Fluconazole [Diflucan] 100 mg PO DAILY #14 tab 04/05/16 Methenamine Hippurate 1 gm PO BID #14 tablet 04/05/16 Amb Orders for Discharge: Basic Metabolic Panel Time Frame: 1 Week, Location: Determined By Patient CBC Time Frame: 1 Week, Location: Determined By Patient
== END 2016-04-05 15:28 | disposition home or self-care (01) | DRG 690 ==
LOC: ER 10:34 → MS 14:36 → OBSVTOIN 16:42 → INTOOBSV 16:42 → OBSVTOIN 03-29 16:42
PROVIDERS: ADMIT Internal Medicine; ATTEND Internal Medicine
PROC: BT14ZZZ Fluoroscopy of Kidneys, Ureters and Bladder (ICD-10-PCS; 2016-03-28)
PROC: 0T787DZ Dilation of Bilateral Ureters with Intraluminal Device, Via Natural or Artificial Opening (ICD-10-PCS; principal; 2016-03-28 18:35)
PROC: 0TP97DZ Removal of Intraluminal Device from Ureter, Via Natural or Artificial Opening (ICD-10-PCS; 2016-04-04)
PROC: 0T787DZ Dilation of Bilateral Ureters with Intraluminal Device, Via Natural or Artificial Opening (ICD-10-PCS; 2016-04-04)
DX: N13.6 Pyonephrosis (principal); I25.810 Atherosclerosis of coronary artery bypass graft(s) without angina pectoris; B37.49 Other urogenital candidiasis; I48.2 Chronic atrial fibrillation; I12.9 Hypertensive chronic kidney disease with stage 1 through stage 4 chronic kidney disease, or unspecified chronic kidney disease; B96.20 Unspecified Escherichia coli [E. coli] as the cause of diseases classified elsewhere; N39.0 Urinary tract infection, site not specified; N18.4 Chronic kidney disease, stage 4 (severe); R21 Rash and other nonspecific skin eruption; R00.1 Bradycardia, unspecified; I73.9 Peripheral vascular disease, unspecified; Z79.01 Long term (current) use of anticoagulants; Z89.512 Acquired absence of left leg below knee; Z89.511 Acquired absence of right leg below knee; Z95.1 Presence of aortocoronary bypass graft
CPT/HCPCS: 36415; 52005; 52332; 74176; 74420; 76000; 76775; 80048; 80053; 80202; 81001; 82565; 83605; 84484; 85025; 87040; 87077; 87081; 87086; 87106; 87186; 88108; 93005; 99283; G0378

== ENCOUNTER 2016-04-15 16:35 | Observation (INO) | payer MEDICARE, BC ==
--- NOTE | 2016-04-15 16:58 | ERNOTE ---
Trauma/Assault HPI - Narrative Date of Service: 04/15/16 - General Stated Complaint: FALLS Time Seen by Provider: 04/15/16 16:48 Source: patient, family, EMS, RN notes reviewed Exam Limitations: other - poor historian - Immun/Allergies/Home Medications Immunizations: IMMUNIZATION HX Immunizations Up to Date Yes History of Influenza Vaccine Yes Hx Pneumococcal Vaccination No Allergies/Adverse Reactions: Allergies gentamicin [Gentamicin] Allergy (Verified 04/15/16 16:45) unknown Metronidazole HCl [From Flagyl] Allergy (Verified 04/15/16 16:45) unknown morphine Allergy (Verified 04/15/16 16:45) unknown ORA Inhibitors Adverse Reaction (Mild, Verified 04/15/16 16:45) COUGH Home Medications: HOME MEDICATIONS Allopurinol [Zyloprim] 100 mg PO DAILY 12/28/15 [Last Taken Unknown] Ascorbic Acid [Vitamin C] 500 mg PO DAILY 12/28/15 [Last Taken Unknown] Docusate Sodium [Colace] 100 mg PO DAILY 12/28/15 [Last Taken Unknown] Insulin Aspart [Novolog] 5 units SC TIDWM 12/28/15 [Last Taken Unknown] Insulin Glargine,Hum.rec.anlog [Lantus] 28 units SC DAILY 12/28/15 [Last Taken Unknown] Isosorbide Mononitrate [Imdur] 30 mg PO DAILY 12/28/15 [Last Taken Unknown] Oxybutynin Chloride [Ditropan] 5 mg PO TID 12/28/15 [Last Taken Unknown] Rivaroxaban [Xarelto] 15 mg PO HS 12/28/15 [Last Taken Unknown] Simvastatin [Zocor] 20 mg PO DAILY 12/28/15 [Last Taken Unknown] Acetaminophen [Tylenol] 650 mg PO Q6H PRN #30 tablet 04/04/16 [Last Taken Unknown] Amiodarone HCl [Cordarone] 100 mg PO DAILY #60 tablet 04/04/16 [Last Taken Unknown] Carvedilol [Coreg] 3.125 mg PO BID #60 tablet 04/04/16 [Last Taken Unknown] Cefuroxime Axetil [Cefuroxime] 500 mg PO BIDAC #14 tablet 04/04/16 [Last Taken Unknown] Losartan Potassium [Cozaar] 50 mg PO DAILY #30 tablet 04/04/16 [Last Taken Unknown] Carvedilol [Coreg] 3.125 mg PO BID #60 tablet 04/05/16 [Last Taken Unknown] Cefuroxime Axetil [Ceftin] 500 mg PO BID #14 tablet 04/05/16 [Last Taken Unknown ] Fluconazole [Diflucan] 100 mg PO DAILY #14 tab 04/05/16 [Last Taken Unknown] Methenamine Hippurate 1 gm PO BID #14 tablet 04/05/16 [Last Taken Unknown] - History of Present Illness Date (Duration): 04/15/16 Narrative: 70 y/o female brought to the ED by EMS after a fall at home. She was getting up from the toilet when she lost her footing and landed on the floor. Her called EMS to help get her back up. He reports that she has been weak and falling more in the past few days, so he felt that they should just bring her in for evaluation. He also reports that she seems more forgetful than usual. The patient denies any injuries from the fall. She was discharged from the hospital approximately 10 days ago. She reports that she has been fine since. She was hospitalized for hydronephrosis and ARF. She had ureteral stents placed during the hospitalization. She was discharged home on Ceftin and has finished this. The patient does report that she has not been drinking very much because she does not want to have to go to the bathroom very often. Location Occurred: Reports: home Pain Location: Reports: none Loss of Consciousness: Reports: no loss of consciousness Associated Symptoms - Trauma: Reports: denies symptoms Review of Systems - Review of Systems Constitutional: Present: recent illness. Absent: fever, fatigue, malaise EYE: Present: no symptoms reported ENT: Present: no symptoms reported Respiratory: Absent: shortness of breath, cough Cardiology: Absent: chest pain, syncope Gastrointestinal/Abdominal: Present: drinking less. Absent: nausea, vomiting, diarrhea, abdominal pain, eating less Genitourinary: Present: frequency. Absent: dysuria Musculoskeletal: Absent: back pain, neck pain Skin: Present: no symptoms reported Neurological: Absent: headache, dizziness/light-headedness, weakness Endocrine: Present: no symptoms reported Hematologic/Lymphatic: Present: no symptoms reported Psych: Present: no symptoms reported - Patient's Past Medical History Patient History - Medical: Diabetes Type 2 Insulin Dependent, Kidney stone, UTI' S Patient History - Cardiac/Respiratory: Hypertension, Hyperlipidemia, Myocardial Infarction Patient History - Cancer: No Hx of Cancer Patient History - Surgical Procedures: Amputation, Appendectomy, Cataracts, Cholecystectomy, Coronary Bypass Surgery, Hysterectomy, Other Patient History - Other: None LMP (females 10-50): Menopausal - Family History Mother Family History - Medical: Diabetes Type 2 Family History - Cardiac/Respiratory: Myocardial Infarction - Social History Living Situations: home Smoking Status: Former smoker Alcohol Use: none Drug Use: none - Immunizations Immunizations Up to Date: Yes Hx Pneumococcal Vaccination: No History of Influenza Vaccine: Yes Physical Exam - Physical Exam General Appearance: Present: wd/wn, alert, no apparent distress, other - dirty appearance, wearing a night gown in the afternoon Eye Exam: Normal inspection: bilateral Ears, Nose, Throat: Present: normal ENT inspection, hearing grossly normal, normal pharynx Neck: Present: normal inspection, nontender, supple, full range of motion Respiratory: Present: no respiratory distress, normal breath sounds, no accessory muscle use, lungs clear Cardiovascular/Chest: Present: regular rate, rhythm, no murmur Gastrointestinal/Abdominal: Present: normal bowel sounds, nontender, nondistended, soft Back Exam: Present: normal inspection, no vertebral tenderness Extremity Exam: Present: other - bilateral lower leg amputations with prosthetics in place Neurological Exam: Present: alert, oriented, normal mood/affect, no motor/ sensory deficits Skin Exam: Present: warm/dry, pallor ED Progress - Results and Orders Patient's Lab Results:: I have reviewed the patient's lab results. - Vital Signs Patient's Vital Signs:: I have reviewed the patient's vital signs. Vital Signs: Vital Signs 04/15/16 16:41 Pulse Rate 66 Respiratory 16 Rate Blood Pressure 177/79 O2 Sat by Pulse 96 Oximetry - Progress/Reassessment Chief Complaint: Fall Progress:: Unchanged Plan - Plan Plan: Observation stay for worsening renal function and weakness discussed with Dr. William at 1800. Creatinine was 1.61 on discharge on 04/05 and is now back up to 2.22 - Likely d/t patient's poor oral intake as she does not want to have to get to the bathroom very often. Cath UA showed luekocyte esterace and WBC's - culture is pending. Will hold off on starting antibiotic for now as patient has a normal WBC and is not febrile. Departure Clinical Impression: Acute on chronic renal failure, Weakness generalized - Departure Disposition: [facility] Condition: Stable Referrals: Samantha Watson MD [Primary Care Provider] -
[2016-04-15 17:12] LABS: Hematocrit 30.2 % (37.0-47.0); Hemoglobin 9.9 gm/dL (12.5-16.0); Mean Cell Volume 94.7 fl (78-100); Mean Corpuscular Hgb Conc 32.8 g/dl (32-36); Mean Platelet Volume 9.9 fl (6.0-9.5); Neutrophil # 3.7 K/mm3 (1.3-6.0); Neutrophil % 73.5 % (42-75.0); Platelet Count 117 K/mm3 (150-450); Red Blood Count 3.19 M/mm3 (4.2-5.4); Red Cell Distribution Width 14.3 % (11.5-14.0)
[2016-04-15 17:24] LABS: Urine Bilirubin Negative (NEGATIVE); Urine Blood Negative /ul (NEGATIVE); Urine Ketone Negative (NEGATIVE); Urine Nitrite Negative (NEGATIVE); Urine Protein 100 mg/dL (NEGATIVE); Urine Urobilinogen Normal (NORMAL)
[2016-04-15 17:25] LABS: Albumin * 3.4 gm/dl (3.4-5.0); Anion Gap 10.6 mmol/L (6.8-13.8); BUN/Creatinine Ratio 11.3 (9.0-21.6); Bilirubin, Total 0.4 mg/dL (0.0-1.1); Ca. Corrected For Albumin 10.9 mg/dL (8.4-10.2); Calcium * 10.7 mg/dL (7.9-10.9); Carbon Dioxide 28.4 mmol/L (24-32.6); Total Protein 6.2 gm/dL (6.2-8.2)
[2016-04-15 17:33] LABS: Urine Appearance Clear; Urine Bacteria TRACE; Urine Color Yellow; Urine RBC None Seen /hpf (0-5)
[2016-04-15] MEDS ORDERED: DEXTROSE 5%-NORMAL SALINE 1,000 ML IV PRN (18:38)
--- NOTE | 2016-04-15 19:29 | HP ---
Chief Complaint - Chief Complaint Date of Service: 04/15/16 Time of Service: 19:29 Chief Complaint: 'Weakness, fall'. Source of HPI- Pt; reliable, ER provider notes. History of Present Illness: Mrs. Ramírez is a 70-yr-old W[place] pt of Dr. Samantha Watson with a PMH of: Anemia , CKD, CHF, CVA, Depression, DM II, GERD, Gout, HTN, HLD, IA & Rheumatoid Arthritics. Pt states that while attempting to stand up from the toliet this morning, her RT prosthesis slid off causing her to lose balance. She was able to lower herself to the floor without any trauma/injury. Her called the EMS as she was too weak to stand up with assistance. She states that she has not felt well for the last two days. She has felt mostly weak. reported to the ER provider that she seems more forgetful than usual. During physical examination she will narrate her illness and then will stop and say " Am sorry, I don't know what I wanted to say." She denies having fevers or chills. She also denies N/V, Diarrhea, Abd Pain & SOB. She was [facility] the [facility] on and was found to have bilateral hydronephrosis with RT> LT. She has prior history of stenting for [place]. hydronephrosis due to stone which was done at [facility] in December,. Records show that on 04/04/16, Dr. Tim removed and replaced the stents. During evaluation at the ER today, most of the laboratory results were unremarkable except for: elevated BUN/CR and the UA which showed infection. She will be admitted under observation for IVF hydration and IV antibiotics. - Patient's Past Medical History Patient History - Medical: Anemia, Diabetes Type 2 Insulin Dependent, GERD, Kidney stone, UTI'S, Other - Chronic Kidney Disease stage IV, Depression, Patient History - Cardiac/Respiratory: CHF, CVA/Stroke, Hypertension, Hyperlipidemia, Myocardial Infarction Patient History - Cancer: No Hx of Cancer Patient History - Surgical Procedures: Amputation, Appendectomy, Cataracts, Cholecystectomy, Coronary Bypass Surgery, Hysterectomy, Other - [place] BKA. Patient History - Other: None LMP (females 10-50): Menopausal - Family History Mother Family History - Medical: , Diabetes Type 2 Family History - Cardiac/Respiratory: Myocardial Infarction Father Family History - Medical: , No pertinent hx - Social History Living Situations: home Smoking Status: Former smoker Alcohol Use: none Drug Use: none - Immunizations Immunizations Up to Date: Yes Hx Pneumococcal Vaccination: No History of Influenza Vaccine: Yes Review Of Systems (GEN) - Review of Systems Generalized/Overall Review: Present: Weakness. Absent: Chills, Fever, Diaphoresis EENTM: Absent: Eye Pain, Blurred Vision, Tearing Respiratory: Absent: Cough, Shortness of Breath Cardiac: Absent: Chest Pain, Edema Abdominal: Absent: Nausea, Vomiting, Abdominal Pain, Diarrhea Genitourinary: Present: Urgency, Frequency. Absent: Burning, Dysuria Musculoskeletal: Absent: Joint Pain Neurological: Present: Weakness. Absent: Headache, Anxiety Skin: Absent: Lesions, Lumps Endocrine: Absent: Intolerance to Heat, Increased Hunger, Increased Thirst Misc: All systems neg except as marked Immunizations: IMMUNIZATION HX Immunizations Up to Date Yes History of Influenza Vaccine Yes Hx Pneumococcal Vaccination No Allergies/Adverse Reactions: Allergies Allergy/AdvReac Type Severity Reaction Status Date / Time gentamicin [Gentamicin] Allergy unknown Verified 04/15/16 16:45 Metronidazole HCl Allergy unknown Verified 04/15/16 16:45 [From Flagyl] morphine Allergy unknown Verified 04/15/16 16:45 ORA Inhibitors AdvReac Mild COUGH Verified 04/15/16 16:45 Home Medications: HOME MEDICATIONS Allopurinol [Zyloprim] 100 mg PO DAILY 12/28/15 [Last Taken Unknown] Ascorbic Acid [Vitamin C] 500 mg PO DAILY 12/28/15 [Last Taken Unknown] Docusate Sodium [Colace] 100 mg PO DAILY 12/28/15 [Last Taken Unknown] Insulin Aspart [Novolog] 5 units SC TIDWM 12/28/15 [Last Taken Unknown] Insulin Glargine,Hum.rec.anlog [Lantus] 28 units SC DAILY 12/28/15 [Last Taken Unknown] Isosorbide Mononitrate [Imdur] 30 mg PO DAILY 12/28/15 [Last Taken Unknown] Oxybutynin Chloride [Ditropan] 5 mg PO TID 12/28/15 [Last Taken Unknown] Rivaroxaban [Xarelto] 15 mg PO HS 12/28/15 [Last Taken Unknown] Simvastatin [Zocor] 20 mg PO DAILY 12/28/15 [Last Taken Unknown] Acetaminophen [Tylenol] 650 mg PO Q6H PRN #30 tablet 04/04/16 [Last Taken Unknown] Amiodarone HCl [Cordarone] 100 mg PO DAILY #60 tablet 04/04/16 [Last Taken Unknown] Carvedilol [Coreg] 3.125 mg PO BID #60 tablet 04/04/16 [Last Taken Unknown] Cefuroxime Axetil [Cefuroxime] 500 mg PO BIDAC #14 tablet 04/04/16 [Last Taken Unknown] Losartan Potassium [Cozaar] 50 mg PO DAILY #30 tablet 04/04/16 [Last Taken Unknown] Carvedilol [Coreg] 3.125 mg PO BID #60 tablet 04/05/16 [Last Taken Unknown] Cefuroxime Axetil [Ceftin] 500 mg PO BID #14 tablet 04/05/16 [Last Taken Unknown ] Fluconazole [Diflucan] 100 mg PO DAILY #14 tab 04/05/16 [Last Taken Unknown] Methenamine Hippurate 1 gm PO BID #14 tablet 04/05/16 [Last Taken Unknown] Exam - Exam Vital Signs: Vital Signs - Last Taken Temp 36.9 C 04/05/16 10:37 Pulse 69 04/15/16 18:11 Resp 16 04/15/16 18:11 BP 182/83 04/15/16 18:11 Pulse Ox 96 04/15/16 17:49 Constitutional: Present: Alert, No distress ENT Exam: Present: normal ENT inspection, hearing grossly normal. Absent: nasal congestion, nasal drainage Eye Exam: bilateral eye: normal inspection, PERRL Neck: Present: full range of motion, supple, normal inspection Back Exam: Present: normal inspection, no CVA tenderness Breasts: Present: Exam deferred Respiratory: Present: lungs clear, no accessory muscle use, No wheezing Cardiovascular/Chest: Present: regular rate, rhythm, no murmur Abdomen: Present: Normal bowel sounds, soft, nontender /Rectal: Present: Exam deferred Extremity: Present: other - [place]. BKA Skin Exam: Present: warm/dry, no cyanosis, cool/dry Neurologic: Present: no motor/sensory deficits, alert, normal mood/affect, oriented x 3 Appearance: Present: appropriate appearance, appropriate insight Eye contact: Present: cooperative, good eye contact, normal speech Thoughts: Present: normal thought pattern, no apparent hallucination Diagnostic Studies: Laboratory Results WBC 5.0 K/mm3 (4.0-10.5) 04/15/16 17:08 RBC 3.19 M/mm3 (4.2-5.4) L 04/15/16 17:08 Hgb 9.9 gm/dL (12.5-16.0) L 04/15/16 17:08 Hct 30.2 % (37.0-47.0) L 04/15/16 17:08 MCV 94.7 fl (78-100) 04/15/16 17:08 MCH 31.0 pg (27-31) 04/15/16 17:08 MCHC 32.8 g/dl (32-36) 04/15/16 17:08 RDW 14.3 % (11.5-14.0) H 04/15/16 17:08 Plt Count 117 K/mm3 (150-450) L 04/15/16 17:08 MPV 9.9 fl (6.0-9.5) H 04/15/16 17:08 Immature Gran % (Auto) 0.20 % (0.001-0.429) 04/15/16 17:08 Immature Gran # (Auto) 0.01 K/mm3 (0.000-0.0310) 04/15/16 17:08 Neutrophils % 73.5 % (42-75.0) 04/15/16 17:08 Lymphocytes % 18.8 % (20-51) L 04/15/16 17:08 Monocytes % 6.3 % (0.0-9) 04/15/16 17:08 Eosinophils % 0.8 % (0.0-3.0) 04/15/16 17:08 Basophils % 0.4 % (0.0-1.0) 04/15/16 17:08 Nucleated RBC % 0.0 k/mm3 (0-1) 04/15/16 17:08 Neutrophils # 3.7 K/mm3 (1.3-6.0) 04/15/16 17:08 Lymphocytes # 0.9 k/mm3 (1.5-3.5) L 04/15/16 17:08 Monocytes # 0.3 k/mm3 (0.0-1.0) 04/15/16 17:08 Eosinophils # 0.0 k/mm3 (0.0-0.7) 04/15/16 17:08 Absolute Basophils 0.0 k/mm3 (0.0-0.1) 04/15/16 17:08 Sodium 142 mmol/L (132-142) 04/15/16 17:08 Plasma Sodium 143 mmol/L (130-142) H 04/15/16 17:08 Potassium 4.0 mmol/L (3.4-4.6) 04/15/16 17:08 Chloride 107 mmol/L (97-106) H 04/15/16 17:08 Carbon Dioxide 28.4 mmol/L (24-32.6) 04/15/16 17:08 Anion Gap 10.6 mmol/L (6.8-13.8) 04/15/16 17:08 BUN 25 mg/dL (3-23) H 04/15/16 17:08 Creatinine 2.22 mg/dL (0.4-1.4) H D 04/15/16 17:08 Est GFR (Non-Af Amer) 23 mL/min (60-130) L D 04/15/16 17:08 BUN/Creatinine Ratio 11.3 (9.0-21.6) 04/15/16 17:08 Random Glucose 184 mg/dL (70-110) H 04/15/16 17:08 Calcium 10.7 mg/dL (7.9-10.9) 04/15/16 17:08 Calcium Adj for Albumin 10.9 mg/dL (8.4-10.2) H 04/15/16 17:08 Total Bilirubin 0.4 mg/dL (0.0-1.1) 04/15/16 17:08 AST 14 U/L (0-48) 04/15/16 17:08 ALT 16 U/L (19-67) L 04/15/16 17:08 Alkaline Phosphatase 93 U/L (50-170) 04/15/16 17:08 Total Protein 6.2 gm/dL (6.2-8.2) 04/15/16 17:08 Albumin 3.4 gm/dl (3.4-5.0) 04/15/16 17:08 Urine Color Yellow 04/15/16 17:14 Urine Appearance Clear 04/15/16 17:14 Urine pH 7.0 pH (5.0-7.0) 04/15/16 17:14 Ur Specific [place] 1.020 SP.GR. (1.005-1.010) 04/15/16 17:14 Urine Protein 100 mg/dL (NEGATIVE) H 04/15/16 17:14 Urine Glucose (UA) Negative mg/dL (NEGATIVE) 04/15/16 17:14 Urine Ketones Negative mg/dL (NEGATIVE) 04/15/16 17:14 Urine Blood Negative /ul (NEGATIVE) 04/15/16 17:14 Urine Nitrate Negative (NEGATIVE) 04/15/16 17:14 Urine Bilirubin Negative mg/dl (NEGATIVE) 04/15/16 17:14 Prot Sulfosalicylic Acd 4+ mg/dL (0) H 04/15/16 17:14 Urine Urobilinogen Normal EU/dl (NORMAL) 04/15/16 17:14 Ur Leukocyte Esterase 25 /ul (NEGATIVE) H 04/15/16 17:14 Urine RBC None seen /hpf (0-5) 04/15/16 17:14 Urine WBC 5-10 /hpf (0-5) H 04/15/16 17:14 Ur Epithelial Cells None seen /hpf (0-5) 04/15/16 17:14 Urine Bacteria Trace (NONE) 04/15/16 17:14 Urine Culture Comments Culture to follow 04/15/16 17:14 Assessment/Plan - Assessment/Plan (1) UTI (urinary tract infection) Assessment: UA shows WBC, Trace bacteria & +ve Leukocyte estarace. There is no fever or WBC elevation. However, UTI present in subtle fashion in older adults- confusion/ AMS & Weakness which was noted with the pt. Therefore may be okay to cover with IV Antibiotics for now and switch when culture results. Monitor CBC in am. Problem: Acute (2) Acute on chronic renal failure Assessment: Likely Pre- renal and worsened by poor fluid/oral intake. Will hydrate gently with IVF. Check BMP in am. Problem: Acute (3) Weakness generalized Assessment: Will involve PT for strengthening, Problem: Acute (4) GERD (gastroesophageal reflux disease) Problem: Chronic (5) Diabetes mellitus Assessment: Stable- Accu checks. On Insulin. Problem: Chronic Qualifiers: Diabetes mellitus type: type 2 Diabetes mellitus complication status: with kidney complications Diabetes mellitus complication detail: with nephropathy (6) Hypertension Assessment: Stable- On Coreg, imdur, lorsatan. Problem: Chronic Qualifiers: Hypertension type: essential hypertension Qualified Code(s): I10 - Essential (primary) hypertension (7) Status post bilateral below knee amputation Problem: Chronic (8) HLD (hyperlipidemia) Problem: Chronic
[2016-04-15] MEDS: NORMAL SALINE 1,000 ML IV PRN (22:10)
[2016-04-16] MEDS: ACETAMINOPHEN 325 MG TABLET PO PRN ×2 (05:25→16:00)
[2016-04-16 06:10] LABS: Hematocrit 29.3 % (37.0-47.0); Hemoglobin 9.5 gm/dL (12.5-16.0); Mean Cell Volume 93.9 fl (78-100); Mean Corpuscular Hemoglobin 30.4 pg (27-31); Mean Corpuscular Hgb Conc 32.4 g/dl (32-36); Mean Platelet Volume 10.8 fl (6.0-9.5); Neutrophil # 3.3 K/mm3 (1.3-6.0); Neutrophil % 68.5 % (42-75.0); Platelet Count 120 K/mm3 (150-450); Red Blood Count 3.12 M/mm3 (4.2-5.4); White Blood Count 4.8 K/mm3 (4.0-10.5)
[2016-04-16 06:23] LABS: Anion Gap 12.5 mmol/L (6.8-13.8); BUN/Creatinine Ratio 10.8 (9.0-21.6); Calcium * 10.4 mg/dL (7.9-10.9); Carbon Dioxide 26.2 mmol/L (24-32.6); Estimated Creat Clear 30.2; Potassium 3.7 mmol/L (3.4-4.6)
[2016-04-16] MEDS: CARVEDILOL 3.125 MG TABLET PO SCH ×2 (08:52→20:57)
[2016-04-16] MEDS: ASPIRIN 81 MG TABLET.DR PO SCH (08:52)
[2016-04-16] MEDS: LOSARTAN POTASSIUM 50 MG TABLET PO SCH (08:52)
[2016-04-16] MEDS: AMIODARONE HCL 200 MG TABLET PO SCH (08:52)
[2016-04-16] MEDS: ASCORBIC ACID 500 MG TABLET PO SCH (08:53)
[2016-04-16] MEDS: OXYBUTYNIN CHLORIDE 5 MG TABLET PO SCH ×3 (08:53→17:09)
[2016-04-16] MEDS: FLUCONAZOLE 100 MG TABLET PO SCH (08:53)
[2016-04-16] MEDS: MULTIVITAMINS 1 CAP CAPSULE PO SCH (08:53)
[2016-04-16] MEDS: ALLOPURINOL 100 MG TABLET PO SCH (08:53)
[2016-04-16] MEDS: ISOSORBIDE MONONITRATE 30 MG TAB.SR.24H PO SCH (08:53)
[2016-04-16] MEDS: NORMAL SALINE 1,000 ML IV PRN ×2 (08:59→19:30)
[2016-04-16] MEDS ORDERED: POLYETHYLENE GLYCOL 3350 119 GM BTL PO SCH (09:00)
[2016-04-16] MEDS: INSULIN GLARGINE,HUM.REC.ANLOG 100 UNITS/ML VIAL SC SCH (09:20)
--- NOTE | 2016-04-16 15:20 | PN ---
Subjective - Date and Time Seen Date: 04/16/16 Time: 15:14 Subjective Narrative: patient is feeling better. Her Cr is improved. PT will see her today. Objective - Review of Systems Generalized/Overall Review: Reports: Weakness. Denies: Chills, Fever EENTM: Reports: No Symptoms Reported Respiratory: Denies: Cough, Shortness of Breath Cardiac: Denies: Chest Pain, Palpitations Abdominal: Denies: Nausea, Vomiting Genitourinary Symptoms: Denies: Urgency, Frequency Musculoskeletal Complaints: Denies: Joint Pain - Vitals Vitals: Last Vital Signs Temp 36.9 C 04/16/16 08:31 Pulse 72 04/16/16 08:53 Resp 20 04/16/16 08:31 BP 168/76 04/16/16 08:53 Pulse Ox 99 04/16/16 08:31 - Abnormal Lab Findings Abnormal Lab Findings: Abnormal Lab Results 04/16/16 04/16/16 Range/Units 05:05 05:05 RBC 3.12 L (4.2-5.4) M/mm3 Hgb 9.5 L (12.5-16.0) gm/dL Hct 29.3 L (37.0-47.0) % Plt Count 120 L (150-450) K/mm3 MPV 10.8 H (6.0-9.5) fl Lymphocytes # 1.0 L (1.5-3.5) k/mm3 Sodium 144 H (132-142) mmol/L Plasma Sodium 144 H (130-142) mmol/L Chloride 109 H (97-106) mmol/L Creatinine 1.85 H (0.4-1.4) mg/dL Est GFR (Non-Af Amer) 29 L D (60-130) mL/min - Exam Constitutional: Present: Alert, Oriented x3, Cooperative ENT Exam: Present: hearing grossly normal Neck: Present: supple Breasts: Present: Exam deferred Respiratory: Present: decreased breath sounds, No rales, No wheezing Cardiovascular/Chest: Present: regular rate, rhythm, no JVD, no murmur Abdomen: Present: Normal bowel sounds, soft, nontender, nondistended Extremity: Present: other - positive b/l BKA Assessment/Plan - Problems/Diagnosis (1) Acute on chronic renal failure Problem: Acute Narrative: continue with IVF. (2) Weakness generalized Problem: Acute Narrative: deconditioning. will need NH for further PT/OT. (3) Status post bilateral below knee amputation Problem: Chronic (4) Hydronephrosis Problem: Chronic Qualifiers: Hydronephrosis type: unspecified Qualified Code(s): N13.30 - Unspecified hydronephrosis Narrative: s/p stenting (5) Coronary artery disease Problem: Chronic Qualifiers: Coronary Disease-Associated Artery/Lesion type: bypass graft [place] vs. transplanted heart: ruby heart Associated angina: without angina Qualified Code(s): I25.810 - Atherosclerosis of coronary artery bypass graft(s) without angina pectoris (6) Diabetes mellitus Problem: Chronic Qualifiers: Diabetes mellitus type: type 2 Diabetes mellitus complication status: with kidney complications Diabetes mellitus complication detail: with nephropathy Diabetes mellitus sr. consultant insulin use: with longterm use Qualified Code(s ): E11.21 - Type 2 diabetes mellitus with diabetic nephropathy; Z79.4 - prison (current) use of insulin (7) Peripheral vascular disease Problem: Chronic Narrative: s/p BKA b/l (8) UTI (urinary tract infection) Problem: Acute Qualifiers: Indwelling urinary catheter type: unspecified Encounter type: initial encounter Narrative: vs colonization/contamination. she odes have yeast in her last culture- yomaira glabrata and has been on Diflucan
[2016-04-16] MEDS ORDERED: RIVAROXABAN 15 MG TABLET PO SCH (21:00)
[2016-04-16] MEDS ORDERED: SIMVASTATIN 20 MG TABLET PO SCH (21:00)
[2016-04-17] MEDS: ACETAMINOPHEN 325 MG TABLET PO PRN (05:31)
[2016-04-17] MEDS: NORMAL SALINE 1,000 ML IV PRN (06:46)
[2016-04-17 08:30] LABS: Anion Gap 12.6 mmol/L (6.8-13.8); BUN/Creatinine Ratio 10.2 (9.0-21.6); Calcium * 9.5 mg/dL (7.9-10.9); Estimated Creat Clear 31.7; Potassium 3.6 mmol/L (3.4-4.6)
[2016-04-17] MEDS ORDERED: POLYETHYLENE GLYCOL 3350 119 GM BTL PO SCH (09:00)
[2016-04-17] MEDS: FLUCONAZOLE 100 MG TABLET PO SCH (09:39)
[2016-04-17] MEDS: ISOSORBIDE MONONITRATE 30 MG TAB.SR.24H PO SCH (09:39)
[2016-04-17] MEDS: OXYBUTYNIN CHLORIDE 5 MG TABLET PO SCH (09:40)
[2016-04-17] MEDS: ALLOPURINOL 100 MG TABLET PO SCH (09:40)
[2016-04-17] MEDS: ASCORBIC ACID 500 MG TABLET PO SCH (09:40)
[2016-04-17] MEDS: LOSARTAN POTASSIUM 50 MG TABLET PO SCH (09:40)
[2016-04-17] MEDS: AMIODARONE HCL 200 MG TABLET PO SCH (09:40)
[2016-04-17] MEDS: CARVEDILOL 3.125 MG TABLET PO SCH (09:40)
[2016-04-17] MEDS: ASPIRIN 81 MG TABLET.DR PO SCH (09:40)
[2016-04-17] MEDS: MULTIVITAMINS 1 CAP CAPSULE PO SCH (09:40)
[2016-04-17] MEDS: INSULIN GLARGINE,HUM.REC.ANLOG 100 UNITS/ML VIAL SC SCH (09:42)
[2016-04-17 10:24] VITALS: BP 144/55
--- NOTE | 2016-04-17 10:54 | DS ---
(1) Acute on chronic renal failure Diagnosis(s): Cr continues to improve Problem: Acute (2) Weakness generalized Diagnosis(s): will go to [facility] for more PT before going home. Problem: Acute (3) Status post bilateral below knee amputation Problem: Chronic (4) Hydronephrosis Diagnosis(s): s/p stenting Problem: Chronic Qualifiers: Hydronephrosis type: unspecified Qualified Code(s): N13.30 - Unspecified hydronephrosis (5) Coronary artery disease Problem: Chronic Qualifiers: Coronary Disease-Associated Artery/Lesion type: bypass graft [place] vs. transplanted heart: [place] heart Associated angina: without angina Qualified Code(s): I25.810 - Atherosclerosis of coronary artery bypass graft(s) without angina pectoris (6) Diabetes mellitus Problem: Chronic Qualifiers: Diabetes mellitus type: type 2 Diabetes mellitus complication status: with kidney complications Diabetes mellitus complication detail: with nephropathy Diabetes mellitus intermediate project manager insulin use: with longterm use Qualified Code(s ): E11.21 - Type 2 diabetes mellitus with diabetic nephropathy; Z79.4 - terminal manager (current) use of insulin (7) Peripheral vascular disease Problem: Chronic (8) UTI (urinary tract infection) Diagnosis(s): no growth on culture. Problem: Acute Qualifiers: Indwelling urinary catheter type: unspecified Encounter type: initial encounter Description of Stay: Desiree Gutiérrez is a 70-yr-old WF with a PMH of: Anemia, CKD, CHF, CVA, Depression, DM II, GERD, Gout, HTN, HLD, KS & Rheumatoid Arthritics who was admitted on 04/15/16 for weakness and fall. . While attempting to stand up from the toilet on the morning of admission, her RT prosthesis slid off causing her to lose balance. She was able to lower herself to the floor without any trauma/ injury. Her called the EMS as she was too weak to stand up with assistance. 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 She had felt mostly weak. reported to the ER provider that she seems more forgetful than usual. She denied having fevers or chills. She also denied N/V, Diarrhea, Abd Pain & SOB. She was admitted to the [facility] on 03/27/16 and was found to have bilateral hydronephrosis with RT> LT. She has prior history of stenting for corina. hydronephrosis due to stone which was done at [facility] in December,. Records show that on 04/04/16, Dr. Tim removed and replaced the stents. During evaluation at the ER today, most of the laboratory results were unremarkable except for: elevated BUN/CR and the UA which showed infection. She was admitted under observation for IVF hydration and IV antibiotics. She was also referred to PT for evaluation . Her Cr has improved and her urine C & S showed NG. She is now stable to be discharged to the NH for more PT. Procedures Performed: none Discharge Disposition: [facility] Condition: Fair Discharge Activity: Activity as tolerated Discharge Diet: Consistent carbs Referrals: Samantha Watson MD [Primary Care Provider] - Additional Patient Instructions (free text): Will follow up patient in the NH. Complete Home Medications List: Complete Home Medication List: Allopurinol [Zyloprim] 100 mg PO DAILY 12/28/15 Ascorbic Acid [Vitamin C] 500 mg PO DAILY 12/28/15 Insulin Glargine,Hum.rec.anlog [Lantus] 28 units SC DAILY 12/28/15 Isosorbide Mononitrate [Imdur] 30 mg PO DAILY 12/28/15 Oxybutynin Chloride [Ditropan] 5 mg PO TID 12/28/15 Rivaroxaban [Xarelto] 15 mg PO HS 12/28/15 Acetaminophen [Tylenol] 650 mg PO Q6H PRN #30 tablet 04/04/16 Amiodarone HCl [Cordarone] 100 mg PO DAILY #60 tablet 04/04/16 Carvedilol [Coreg] 3.125 mg PO BID #60 tablet 04/04/16 Losartan Potassium [Cozaar] 50 mg PO DAILY #30 tablet 04/04/16 Fluconazole [Diflucan] 100 mg PO DAILY #14 tab 04/05/16 Methenamine Hippurate 1 gm PO BID #14 tablet 04/05/16 Acetaminophen [Tylenol] 650 mg PO Q6H PRN 04/15/16 Aspirin [Aspirin EC] 81 mg PO DAILY 04/15/16 Multivitamin [One Daily Essential] 1 each PO DAILY 04/15/16 Polyethylene Glycol 3350 [Miralax] 17 gm PO DAILY 04/15/16 Albuterol Sulfate [Proair Respiclick] 90 mcg IH Q4H PRN 04/16/16
== END 2016-04-17 11:40 ==
LOC: ER 16:35 → MS 18:25
PROVIDERS: ADMIT Allergy & Immunology; ATTEND Internal Medicine
DX: N17.9 Acute kidney failure, unspecified (principal); N18.4 Chronic kidney disease, stage 4 (severe); R53.1 Weakness; N13.30 Unspecified hydronephrosis; I73.9 Peripheral vascular disease, unspecified; I25.810 Atherosclerosis of coronary artery bypass graft(s) without angina pectoris; I25.2 Old myocardial infarction; E11.21 Type 2 diabetes mellitus with diabetic nephropathy; Z89.512 Acquired absence of left leg below knee; Z89.511 Acquired absence of right leg below knee; Z87.440 Personal history of urinary (tract) infections; Z79.4 Long term (current) use of insulin; Z79.899 Other long term (current) drug therapy; Z86.73 Personal history of transient ischemic attack (TIA), and cerebral infarction without residual deficits; Z90.49 Acquired absence of other specified parts of digestive tract; Z82.49 Family history of ischemic heart disease and other diseases of the circulatory system
CPT/HCPCS: 36415; 80048; 80053; 81001; 85025; 87081; 87086; 96365; 96366; 97110; 97116; 97162; 99283; G0378; G8978; G8979; G8980

== ENCOUNTER 2016-06-20 11:51 | Day surgery (SDC) | payer MEDICARE, BC, OTHER ==
[~2016-06-20 11:51] MED LIST: MICAFUNGIN SODIUM 100 MG in NORMAL SALINE 100 ML IV PRN; NORMAL SALINE 1,000 ML IV PRN
--- OUTSIDE RECORDS SUMMARY | 2016-06-20 11:55 | XMS REPORT | Continuity of Care Document ---
:1945 Author Organization [facility] ([facility]) Address [place] [address] Phone [phone] Care Team Providers Name Role Phone Samantha Watson Primary Care Provider [phone] Source Comments This disclosure is being made pursuant to the Care Everywhere program, applicable federal and state laws, and may not contain all informaitonavailable regarding this patient.[facility] ([facility]) Active Allergies and Adverse Reactions Allergen Noted Date Severity Reactions Comments Levon Inhibitors 08/20/2012 OTHER COUGH Gentamicin Unknown Metronidazole 08/20/2012 OTHER Lost balance/dizziness Morphine Unknown Current Medications Prescription Sig. Disp. Refills Start Date End Date Status prednisoLONE acetate 1 instill 1 Drop onto 5 mL 0 08/21/2012 Active % ophthalmic the left eye 4 suspension times daily. Indications: SEVERE OCULAR INFLAMMATION ascorbic acid (VITAMIN Take 500 mg by Suspended C) 500 mg tablet mouth daily. GABAPENTIN PO Take 500 mg by Suspended mouth at bedtime. 300 mg at night zinc 50 mg tablet Take 50 mg by mouth Suspended daily. simvastatin 80 mg Take 80 mg by mouth Suspended tablet every evening. aspirin 325 mg tablet Take 325 mg by Suspended mouth daily. buPROPion Take 150 mg by Suspended (WELLBUTRIN-SR) 150 mg mouth daily. SR tablet 12 hour iron polysaccharide Take 150 mg by Suspended complex (POLY-IRON) mouth 2 times 150 mg capsule daily. valsartan (DIOVAN) 160 Take 160 mg by Suspended mg tablet mouth daily. furosemide (LASIX) 40 Take 40 mg by mouth Suspended mg tablet daily. Alternates 40 mg one day and 20 mg on the other day hydrALAZINE 100 mg Take 100 mg by Suspended tablet mouth 3 times daily. atenolol 50 mg tablet Take 50 mg by mouth Suspended daily. fexofenadine 30 mg Take 30 mg by mouth Suspended tablet 3 times daily. glimepiride 4 mg Take 4 mg by mouth Suspended tablet 2 times daily with meals. omeprazole 20 mg XR Take 20 mg by mouth Suspended tablet daily. INSULIN inject Suspended GLARGINE,HUM.REC.ANLOG subcutaneously. 38 (LANTUS SC) unites qam MULTIVITAMIN PO Take by mouth. Suspended albuterol 90 2 Puffs every 6 Suspended mcg/Actuation inhaler hours as needed. CALCIUM CARBONATE Take by mouth. Suspended (TUMS PO) oxybutynin 5 mg tablet Take 5 mg by mouth Suspended 2 times daily. allopurinol 300 mg Take 300 mg by Suspended tablet mouth daily. colchicine (COLCRYS) Take 0.6 mg by Suspended 0.6 mg tablet mouth daily. M-W-F Active Problems Problem Noted Date ERM OS (epiretinal membrane, left eye) 08/22/2012 Social History Tobacco Use Types Packs/Day Years Used Date Never Smoker Smokeless Tobacco: Never Used Tobacco Cessation:Counseling Given: Yes Comments: Last Filed Vital Signs Vital Sign Reading Time Taken Blood Pressure 125/65 08/21/2012 2:30 PM CDT Pulse 108 08/21/2012 2:30 PM CDT Temperature 36.3 C (97.3 F) 08/21/2012 1:21 PM CDT Respiratory Rate 16 08/21/2012 1:45 PM CDT Height 1.753 m (5' 9") 08/21/2012 10:00 AM CDT Weight 128.822 kg (284 lb) 08/21/2012 10:00 AM CDT Body Mass Index 41.92 08/21/2012 10:00 AM CDT Oxygen Saturation 96% 08/21/2012 2:30 PM CDT Plan of Care Health Maintenance Due Date Last Done Comments HCV Screening 1945 Hepatitis B Vaccine (1 of 3 - Primary Series) 1945 Tdap Vaccine 10/06/1955 Lipid Disorder Screening 1962 Td Vaccine 1962 Mammogram 1984 Colonoscopy 1994 Zoster Vaccine 2004 Osteoporosis Screening (DXA Bone Density) 2009 Pneumococcal Vaccine (1 of 2 - PCV13) 2009 Influenza Vaccine: Seasonal (#1) 10/17/2015 Results from Last 3 Months Not on file
--- NOTE | 2016-06-20 13:53 | OR ---
Operative Report - Dictated Report Narrative: Location: Main OR Anesthesia: Mac/IV sedation Surgeon: Dr. Goncalves Preoperative diagnosis: Bilateral ureteral obstruction/colonization Postoperative diagnosis: Right kidney definitely looks worse than left Procedure: #1 Cystoscopy with removal of previously placed double-J stent's with bilateral retrograde pyelograms #2 placement of bilateral metallic 6 x 26 double-J stents Indications: 70-year-old diabetic female colonize with Shayna glabrata with underlying renal failure and radiographic and ureteroscopic evidence of colonization with likely obstruction from chronic edema. Patient had double-J stent placement renal function has improved and overall clinically she has felt the best she has in a long time. Still colonized. We have attempted decolonization prior to metallic stent placement to see if we can succeed understanding possibility she will likely remain colonized. Presents today to convert to metallic stents. Description: Consent obtained. Patient brought to the operating room where general endotracheal anesthesia was induced. Placed in the dorsal lithotomy position. Prepped and draped. Timeout taken. Rigid cystoscope introduced into the bladder with ease and quick cystoscopy revealed evidence of some funguria in the bladder but overall bladder mucosa looked fairly good and debris was minimal. Both stents were identified grasped pulled per urethra. Super Stiff wire advanced up the right stent in the right stent was removed. Metallic stent obturator and sheath was introduced over the Super Stiff wire and under fluoroscopic guidance navigated proximally. Inner obturator and wire removed leaving sheath in place. Retrograde obtained confirming a very high insertion to the right ureter with significant persistent renal dilation on the right, much different than left side. Metallic stent 6 x 26 deployed using fluoroscopy with good placement and bladder as well. Of note I think a 6 x 28 or 6 x 30 would be better on this side based on how it looked at the conclusion but I think we will be okay Attention turned to the second stent or Super Stiff wire was advanced. Stent removed. Metallic stent obturator and sheath placed over the wire under fluoroscopic guidance. Inner obturator and wire removed leaving sheath in place. Contrast injected and this collecting system was much more normal in appearance especially at the UPJ and no evidence of hydronephrosis with good preserved calyceal anatomy. No filling defects. Stent placed appropriately using fluoroscopy. Bladder was drained sent for culture. Specimen: Urine for culture EBL: 0 ml Condition: tolerated procedure Important findings: Evidence of chronic colonization with some funguria. Overall much improved compared to last procedure. Persistent right dilation much worse than left. Successful metallic stent exchange bilaterally Follow-up: I will see her in 6 months with ultrasound/UA/creatinine. Sooner if trouble. Of note on the right side it would be better to use a 6 x 28 or 6 x 30 metallic based on anatomy. Left side should remain at 6 x 26
[2016-06-20 15:04] VITALS: BP 148/58
== END 2016-06-20 11:52 | disposition home or self-care (01) ==
LOC: AMB 11:51
PROVIDERS: ATTEND Urology
PROC: BT14ZZZ Fluoroscopy of Kidneys, Ureters and Bladder (ICD-10-PCS; 2016-06-20)
PROC: 0WHR8YZ Insertion of Other Device into Genitourinary Tract, Via Natural or Artificial Opening Endoscopic (ICD-10-PCS; 2016-06-20)
PROC: 0T788DZ Dilation of Bilateral Ureters with Intraluminal Device, Via Natural or Artificial Opening Endoscopic (ICD-10-PCS; principal; 2016-06-20 13:00)
DX: N13.8 Other obstructive and reflux uropathy (principal); I13.0 Hypertensive heart and chronic kidney disease with heart failure and stage 1 through stage 4 chronic kidney disease, or unspecified chronic kidney disease; N18.4 Chronic kidney disease, stage 4 (severe); I50.9 Heart failure, unspecified; N17.9 Acute kidney failure, unspecified; E11.22 Type 2 diabetes mellitus with diabetic chronic kidney disease; D63.1 Anemia in chronic kidney disease; I25.10 Atherosclerotic heart disease of native coronary artery without angina pectoris; K21.9 Gastro-esophageal reflux disease without esophagitis; N25.81 Secondary hyperparathyroidism of renal origin; F32.9 Major depressive disorder, single episode, unspecified; E66.9 Obesity, unspecified; Z68.28 Body mass index [BMI] 28.0-28.9, adult

== ENCOUNTER 2016-06-29 18:19 | Emergency (ER) | payer MEDICARE, BC ==
--- OUTSIDE RECORDS SUMMARY | 2016-06-29 21:55 | XMS REPORT | Continuity of Care Document ---
:1945 Author Organization [facility] ([facility]) [place] [address] Phone [phone] Care Team Providers Name Role Phone Samantha Watson Primary Care Provider [phone] Source Comments This disclosure is being made pursuant to the Care Everywhere program, applicable federal and state laws, and may not contain all informaitonavailable regarding this patient.[facility] ([facility]) Active Allergies and Adverse Reactions Allergen Noted [...]
[2016-06-29 22:36] LABS: Hematocrit 34.6 % (37.0-47.0); Hemoglobin 11.8 gm/dL (12.5-16.0); Mean Cell Volume 91.8 fl (78-100); Mean Corpuscular Hemoglobin 31.3 pg (27-31); Mean Corpuscular Hgb Conc 34.1 g/dl (32-36); Mean Platelet Volume 10.6 fl (6.0-9.5); Neutrophil # 5.9 K/mm3 (1.3-6.0); Neutrophil % 71.1 % (42-75.0); Platelet Count 150 K/mm3 (150-450); Red Blood Count 3.77 M/mm3 (4.2-5.4); Red Cell Distribution Width 12.5 % (11.5-14.0); White Blood Count 8.3 K/mm3 (4.0-10.5)
[2016-06-29 22:54] LABS: Troponin I 0.041 ng/ml (0.00-0.10)
[2016-06-29 22:56] LABS: Albumin * 3.7 gm/dl (3.4-5.0); Anion Gap 12.9 mmol/L (6.8-13.8); BUN/Creatinine Ratio 16.4 (9.0-21.6); Bilirubin, Total 0.3 mg/dL (0.0-1.1); Carbon Dioxide 26.3 mmol/L (24-32.6); Potassium 5.2 mmol/L (3.4-4.6); Total Protein 6.8 gm/dL (6.2-8.2)
[2016-06-29 22:59] LABS: Ca. Corrected For Albumin 13.9 mg/dL (8.4-10.2)
[2016-06-29 22:59] LABS: Urine Bilirubin Negative (NEGATIVE); Urine Blood 25 /ul (NEGATIVE); Urine Ketone Negative (NEGATIVE); Urine Protein 100 mg/dL (NEGATIVE); Urine Specific Gravity 1.015 SP.GR. (1.005-1.010); Urine Urobilinogen Normal (NORMAL)
[2016-06-29 23:00] LABS: Urine Amorphous Sediment Few - 1+ (NONE-FEW); Urine Appearance Cloudy; Urine Bacteria 2+; Urine Coarse Granular Cast TRACE /LPF; Urine Color Yellow; Urine Hyaline Cast TRACE /LPF; Urine Nitrite Positive (NEGATIVE); Urine RBC 0-5 /hpf (0-5); Urine WBC >50 /hpf (0-5); Urine Yeast Many - 3+
[2016-06-29] MEDS ORDERED: NORMAL SALINE 1,000 ML IV ONE (23:02)
[2016-06-29] MEDS ORDERED: DEXTROSE 50%-WATER 50 ML SYRG IV ONE (23:56)
[2016-06-29] MEDS ORDERED: INSULIN REGULAR, HUMAN 100 UNITS/ML VIAL SC ONE (23:56)
[2016-06-30] MEDS ORDERED: INSULIN REGULAR, HUMAN 100 UNITS/ML VIAL ONE (00:10)
[2016-06-30] MEDS ORDERED: DEXTROSE 50%-WATER 50 ML SYRG ONE (00:10)
--- NOTE | 2016-06-30 02:12 | ERNOTE ---
ER Female HPI Date of Service: 06/29/16 Stated Complaint: UTI RELASPE Time Seen by Provider: 06/29/16 21:43 Source: patient Exam Limitations: no limitations Immunizations: IMMUNIZATION HX Immunizations Up to Date Yes History of Influenza Vaccine Yes Hx Pneumococcal Vaccination No Allergies/Adverse Reactions: Allergies gentamicin [Gentamicin] Allergy (Verified 06/20/16 12:13) unknown Metronidazole HCl [From Flagyl] Allergy (Verified 06/20/16 12:13) unknown ORA Inhibitors Adverse Reaction (Mild, Verified 06/20/16 12:13) COUGH morphine Adverse Reaction (Mild, Verified 06/20/16 12:13) Nausea Home Medications: HOME MEDICATIONS Allopurinol [Zyloprim] 100 mg PO DAILY 12/28/15 [Last Taken 04/15/16] Ascorbic Acid [Vitamin C] 500 mg PO DAILY 12/28/15 [Last Taken 04/15/16] Insulin Glargine,Hum.rec.anlog [Lantus] 28 units SC DAILY 12/28/15 [Last Taken 04/15/16] Isosorbide Mononitrate [Imdur] 30 mg PO DAILY 12/28/15 [Last Taken 04/15/16] Oxybutynin Chloride [Ditropan] 5 mg PO TID 12/28/15 [Last Taken 04/15/16] Amiodarone HCl [Cordarone] 100 mg PO DAILY #60 tablet 04/04/16 [Last Taken 06/20] Carvedilol [Coreg] 3.125 mg PO BID #60 tablet 04/04/16 [Last Taken 06/19/16] Losartan Potassium [Cozaar] 50 mg PO DAILY #30 tablet 04/04/16 [Last Taken 04/15] Methenamine Hippurate 1 gm PO BID #14 tablet 04/05/16 [Last Taken Unknown] Acetaminophen [Tylenol] 650 mg PO Q6H PRN 04/15/16 [Last Taken Unknown] Aspirin [Aspirin EC] 81 mg PO DAILY 04/15/16 [Last Taken 04/15/16] Multivitamin [One Daily Essential] 1 each PO DAILY 04/15/16 [Last Taken 04/15/16 ] Polyethylene Glycol 3350 [Miralax] 17 gm PO DAILY 04/15/16 [Last Taken 04/15/16] Albuterol Sulfate [Proair Respiclick] 90 mcg IH Q4H PRN 04/16/16 [Last Taken Unknown] Simvastatin [Zocor] 80 mg PO DAILY 06/20/16 [Last Taken Unknown] - History of Present Illness Narrative: 70 year old that has been feeling generally weak for the last 4 days. She has also noted to be confused at times and difficulty writing. These are similar symptoms that have occurred with a UTI. No complaints of fevers, chills, headache, N/V/D. Timing: Present: constant Quality: Present: mild Radiation: Present: none Activities at Onset: Present: none Prior Abdominal Problems: Present: none Modifying Factors - (Improves): Present: other - nothing Modifying Factors - (Worsens): Present: other - nothing Associated Symptoms: Present: denies symptoms - Patient's Past Medical History Patient History - Medical: Anemia, Diabetes Type 2 Insulin Dependent, GERD, Kidney stone, Renal Disease, UTI'S, Other Patient History - Cardiac/Respiratory: CHF, CVA/Stroke, Hypertension, Hyperlipidemia, Myocardial Infarction Patient History - Cancer: No Hx of Cancer Patient History - Surgical Procedures: Amputation, Appendectomy, Cataracts, Cholecystectomy, Coronary Bypass Surgery, Hysterectomy, Other, Urology Patient History - Other: None - Family History Mother Family History - Medical: , Diabetes Type 2 Family History - Cardiac/Respiratory: Myocardial Infarction Family History - Cancer: Breast Father Family History - Medical: , No pertinent hx Family History - Cardiac/Respiratory: No pertinent hx Family History - Cancer: No pertinent family hx - Social History Living Situations: spouse Abuse History: No History of abuse Psych History: No pertinent hx Smoking Status: Never smoker Do you dip or chew tobacco: No Alcohol Use: none Drug Use: none - Immunizations Immunizations Up to Date: Yes Hx Pneumococcal Vaccination: No History of Influenza Vaccine: Yes Physical Exam - Physical Exam General Appearance: Present: no apparent distress Eye Exam: Normal inspection: bilateral, PERRL: bilateral Ears, Nose, Throat: Present: normal ENT inspection Neck: Present: normal inspection Respiratory: Present: no respiratory distress Cardiovascular/Chest: Present: regular rate, rhythm Gastrointestinal/Abdominal: Present: nontender, nondistended, soft Back Exam: Present: normal inspection Extremity Exam: Present: normal inspection Neurological Exam: Present: alert, oriented, normal mood/affect, 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 - Vital Signs Patient's Vital Signs:: I have reviewed the patient's vital signs. Vital Signs: Vital Signs 06/29/16 06/29/16 06/29/16 18:39 22:17 22:46 Temperature 36.4 C L Pulse Rate 70 43 L 49 L Respiratory 14 18 18 Rate Blood Pressure 128/68 163/46 168/75 O2 Sat by Pulse 98 98 98 Oximetry 06/29/16 06/30/16 06/30/16 23:08 00:21 01:30 Temperature Pulse Rate 48 L 43 L 48 L Respiratory 13 12 12 Rate Blood Pressure 172/61 144/63 185/68 O2 Sat by Pulse 99 95 96 Oximetry - CT/Ultrasound CT/Ultrasound Narrative: No acute ischemic changes or bleed. - Progress/Reassessment Chief Complaint: Genitourinary Problem Progress:: Unchanged Progress Note-Subjective: 07/03/16 03:37 hemodynamically stable. Departure Clinical Impression: Hyperkalemia, [id number] kidney injury, Atrial fibrillation, Bradycardia , UTI (urinary tract infection), Hypercalcemia - Departure Disposition: [facility] in [place] Condition: Stable Referrals: Samantha Watson MD [Primary Care Provider] -
[2016-06-30 03:31] VITALS: BP 162/59
== END 2016-06-30 03:50 | disposition short-term general hospital (02) ==
LOC: ER 18:19
DX: E87.5 Hyperkalemia (principal); N17.9 Acute kidney failure, unspecified; I48.91 Unspecified atrial fibrillation; R00.1 Bradycardia, unspecified; N39.0 Urinary tract infection, site not specified; E83.52 Hypercalcemia

== ENCOUNTER 2017-02-13 11:53 | Day surgery (SDC) | payer MEDICARE, BC ==
[~2017-02-13 11:53] MED LIST changes: -MICAFUNGIN SODIUM 100 MG in NORMAL SALINE 100 ML IV PRN
[2017-02-13] MEDS ORDERED: NORMAL SALINE 1,000 ML IV ONE (12:52)
--- NOTE | 2017-02-13 13:46 | OR ---
Operative Report - Dictated Report Narrative: Location: Main OR Anesthesia: Mac/IV Surgeon: Dr. 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 Patient discovered to have bilateral proximal strictures and has been previously stented actually done okay although failure persist. She is due for stent exchange. Description: Consent obtained. Patient brought to the operating room where Demario esthesia was induced. Placed in the dorsal lithotomy position. Prepped and draped. Timeout taken. Rigid cystoscope introduced into the bladder with ease. She is chronically colonized and there is evidence of pyuria currently. I did drain the bladder and sent a sample for culture to be safe. She did receive preoperative ceftriaxone. Both stents were identified and removed without incident. Of note the right metallic stent looks like it had migrated quite a bit compared to when it was placed in actually after injecting contrast on the retrogrades could very well have been below the area of stricturing. I started on the right side and advanced the Super Stiff wire up the right ureter until it met resistance. Metallic stent sheath and obturator advanced and the retrograde was obtained and interpreted by Dr. Dr. Groves. Ureter is very tortuous, narrowing medially deviated. With injection of contrast did not get much to go to the upper collecting system. I left the sheath in that location brought in an angled Glidewire and after a few attempts I was able to get the wire to migrate up to what appeared to be the renal pelvis. I advanced metallic sheath and obturator over wire without resistance in the inner obturator and wire removed. Additional contrast injected outlining a very capacious renal pelvis without filling defects. Very high insertion to the ureter as well. Metallic stent 6 x 28 was then placed navigated with a good curl proximally under fluoroscopic guidance and good curl distally. Pictures obtained. Attention then turned to the left side. Wire advanced and similarly I met resistance around the mid ureter. Obturator and sheath advanced contrast injected with intraoperative retrograde interpretation by Dr. Dr. Groves. This ureter had a better caliber but there was some redundancy also medially deviated at the midportion. Angled Glidewire was used and I was able to get up to the renal pelvis with ease. Additional contrast injected this collecting system was not as capacious as the opposite side. No filling defects and the calyces looked preserved. 6 x 26 metallic stent was advanced with good curl in kidney and bladder confirmed fluoroscopically. Bladder was drained. Specimen: Urine for culture in case there is any trouble. EBL: 0 ml Condition: tolerated procedure Important findings: Successful stent exchange. There is a small possibility the right stent was below the stricturing and so there could be further improvement in renal function. She is diabetic and chronically colonized. She did receive preoperative antibiotics. As long as not symptomatic infection I would not treat but she is at risk for urosepsis especially during manipulation. I think she will do well but if she spikes temperature and recovery may need to stay the night on IV antibiotics and blood cultures should be sent. Follow-up: I will see her back in 3 months with ultrasound/BMP/catheterized culture
[2017-02-13 15:12] VITALS: BP 199/82
== END 2017-02-13 11:54 | disposition home or self-care (01) ==
LOC: AMB 11:53
PROVIDERS: ATTEND Urology
PROC: 0WHR8YZ Insertion of Other Device into Genitourinary Tract, Via Natural or Artificial Opening Endoscopic (ICD-10-PCS; 2017-02-13)
PROC: 0T9880Z Drainage of Bilateral Ureters with Drainage Device, Via Natural or Artificial Opening Endoscopic (ICD-10-PCS; principal; 2017-02-13 13:00)
DX: N13.5 Crossing vessel and stricture of ureter without hydronephrosis (principal); I13.0 Hypertensive heart and chronic kidney disease with heart failure and stage 1 through stage 4 chronic kidney disease, or unspecified chronic kidney disease; E11.22 Type 2 diabetes mellitus with diabetic chronic kidney disease; N18.4 Chronic kidney disease, stage 4 (severe); I50.9 Heart failure, unspecified; D63.1 Anemia in chronic kidney disease; I25.10 Atherosclerotic heart disease of native coronary artery without angina pectoris; K21.9 Gastro-esophageal reflux disease without esophagitis; N25.81 Secondary hyperparathyroidism of renal origin; E66.9 Obesity, unspecified; Z68.33 Body mass index [BMI] 33.0-33.9, adult

== ENCOUNTER 2018-10-28 21:18 | Observation (INO) ==
--- NOTE | 2018-10-28 21:36 | ERNOTE ---
Dyspnea - General Presenting Symptoms: shortness of breath Time Seen by Provider: 10/28/18 21:20 Source: patient, EMS Exam Limitations: no limitations - Immun/Allergies/Home Medications Immunizations: IMMUNIZATION HX Immunizations Up to Date Yes History of Influenza Vaccine Yes Hx Pneumococcal Vaccination Yes Allergies/Adverse Reactions: Allergies Metronidazole HCl [From Flagyl] Allergy (Verified 10/23/18 09:58) Other Lost sense of balance ORA Inhibitors Adverse Reaction (Mild, Verified 10/23/18 09:58) COUGH gentamicin [Gentamicin] Adverse Reaction (Mild, Verified 10/23/18 09:58) LOST SENSE OF BALANCE morphine Adverse Reaction (Mild, Verified 10/23/18 09:58) N/V Home Medications: HOME MEDICATIONS albuterol sulfate HFA 90 mcg/actuation aerosol inhaler 2 puff IH Q6H PRN #6.7 g 12/05/17 [Last Taken Unknown] acetaminophen ER 650 mg tablet,extended release 650 mg PO Q8H PRN tab 05/20/18 [Last Taken Unknown] aspirin 81 mg tablet,delayed release 81 mg PO DAILY 05/20/18 [Last Taken Unknown] calcium acetate 667 mg capsule 667 mg PO TID 05/20/18 [Last Taken Unknown] isosorbide mononitrate ER 30 mg tablet,extended release 24 hr 30 mg PO QPM tab 05/20/18 [Last Taken Unknown] nitroglycerin 0.4 mg sublingual tablet 0.4 mg SL Q5-15M PRN 05/20/18 [Last Taken Unknown] polyethylene glycol 3350 17 gram oral powder packet 17 g PO DAILY PRN ea 05/20/18 [Last Taken Unknown] Ondansetron HCl [Zofran] 1 - 2 tab PO Q8H PRN #10 tab 06/17/18 [Last Taken Unknown] Durable Medical Equipment See Rx Instructions .ROUTE .MEDSUPPLY #1 ea 07/01/18 [Last Taken Unknown] clopidogrel 75 mg tablet 75 mg PO DAILY #30 tab 07/21/18 [Last Taken Unknown] atorvastatin 10 mg tablet 10 mg PO HS #90 tab 07/24/18 [Last Taken Unknown] insulin detemir (U-100) 100 unit/mL subcutaneous solution 23 unit SUBCUT DAILY #10 ml 10/10/18 [Last Taken Unknown] melatonin 5 mg tablet 5 mg PO HS #30 tab 10/23/18 [Last Taken Unknown] amiodarone 200 mg tablet 400 mg PO BID #180 tab 10/24/18 [Last Taken Unknown] Sevelamer Carbonate [Renvela] 800 mg PO AC 10/29/18 [Last Taken Unknown] Warfarin Sodium 1 mg PO DAILY 10/29/18 [Last Taken Unknown] Warfarin Sodium 2 mg PO DAILY 10/29/18 [Last Taken Unknown] - History of Present Illness Narrative: Patient states she has been a little more short of breath for the past couple of days. She denies any increasing cough or any sputum production. She is brought in by EMS on 2 L per nasal cannula with O2 saturations in the 88-90 range Severity: moderate Initiating event: Reports: unknown Frequency of episodes: Reports: occassional episodes Review of Systems - Review of Systems Constitutional: Absent: recent illness, fever, chills ENT: Absent: nose congestion, nasal drainage Respiratory: Present: shortness of breath, cough, orthopnea Cardiology: Absent: chest pain Gastrointestinal/Abdominal: Absent: nausea, vomiting Genitourinary: Absent: frequency, pain, dysuria Musculoskeletal: Absent: back pain Skin: Absent: rash Neurological: Absent: dizziness/light-headedness Endocrine: Present: excessive sweating Medical History (Updated 10/29/18 @ 01:25 by Calvin Cifuentes DO) Rheumatoid arthritis (Chronic) Gout (Chronic) Anemia (Chronic) Diabetes mellitus (Chronic) Afib (Chronic) Anxiety (Chronic) Dialysis patient (Chronic) Pacemaker (Chronic) GERD (gastroesophageal reflux disease) (Chronic) Hypertension (Chronic) CRF (chronic renal failure) (Chronic) Peripheral vascular disease (Chronic) Coronary artery disease (Chronic) HLD (hyperlipidemia) (Chronic) Bradycardia Anxiety Atrial fibrillation Atrial fibrillation with rapid ventricular response CHF (congestive heart failure) Congestive heart failure (CHF) Diabetes mellitus Dyspnea Hydronephrosis Renal failure Renal failure Acute anxiety Acute on chronic renal failure [id number] kidney injury Chest pain Contusion of leg, left Contusion, arm, upper Elevated INR Hand contusion History of cerebral infarction History of myocardial infarction Hypercalcemia Hyperkalemia Hypotension due to hypovolemia Open wound of foot Pyelonephritis, acute Rash SOB (shortness of breath) URI (upper respiratory infection) UTI (urinary tract infection) Urinary tract infection Urinary tract infection in elderly patient Weakness generalized Surgical History: Surgical History (Updated 05/20/18 @ 12:32 by Roma Baez) History of amputation of both lower extremities (Resolved) History of implantable cardioverter-defibrillator (ICD) placement (Resolved) Status post bilateral below knee amputation AV fistula AV fistula Below knee amputation status Hx of cardiac pacemaker Right below the knee amputation Family History: Family History (Updated 12/03/17 @ 11:56 by Raimundo Mata LPN) Father Accident caused by explosion of boiler Mother Diabetes Brother Diabetes Social History: (Last Reviewed 10/28/18 @ 21:35 by Calvin Cifuentes DO) Social History: assisted: No Marital status: lives independently: No household members: spouse current occupational status: unemployed Service: No Tobacco: Smoking Status: Never smoker Alcohol: alcohol intake: never Substance Use: substance use type: does not use Dietary Habits: caffeine: Yes Exercise: Physical activity type: none Physical activity functional status: wheelchair user frequency: does not exercise Physical Exam - Physical Exam General Appearance: Present: wd/wn, alert, no apparent distress Head Exam: Present: normal inspection, no evidence of injury Ears, Nose, Throat: Present: normal ENT inspection Neck: Present: normal inspection, nontender, supple Respiratory: Present: no respiratory distress, no accessory muscle use, chest nontender, lungs clear Cardiovascular/Chest: Present: regular rate, rhythm, no murmur Gastrointestinal/Abdominal: Present: normal bowel sounds, nontender, nondistended, soft Back Exam: Present: normal inspection, normal range of motion Extremity Exam: Present: normal except - - Bilateral BKA with prostheses in place bilaterally, normal range of motion, no edema Neurological Exam: Present: alert, oriented, normal mood/affect, no motor/sensory deficits Skin Exam: Present: normal color, warm/dry Progress - Results and Orders Patient's Lab Results:: I have reviewed the patient's lab results. Results and Orders: Laboratory Tests 10/28/18 10/28/18 23:25 23:25 WBC 11.4 H Hgb 12.0 L Hct 36.8 L Plt Count 172 Neutrophils % 87.9 H Sodium 136 Potassium 5.7 H Chloride 97 BUN 59 H Creatinine 6.83 H D Est GFR (Non-Af Amer) 6 L Random Glucose 155 H Calcium 9.4 Total Bilirubin 0.8 AST 13 ALT 10 L B-Natriuretic Peptide Greater than 86732 H - Vital Signs Patient's Vital Signs:: I have reviewed the patient's vital signs. Vital Signs: Vital Signs 10/28/18 21:19 Temperature 37.2 C Pulse Rate 77 Respiratory Rate 24 H Blood Pressure 117/63 O2 Sat by Pulse Oximetry 90 L - EKG EKG #1 EKG: nonspecific ST T wave changes, other - sinus tachycardia EKG read: Interp. by me - X-Ray X-Ray #1 X-Ray: chest Interpretation: Interp. by me X-ray Comments: Bilateral pulmonary edema with pleural effusion on the left. No infiltrate or pneumothorax. - Progress/Reassessment Chief Complaint: Dyspnea Progress:: Improved Progress Note-Subjective: 10/29/18 01:23 I spoke with the patient about her fluid overload, she then admitted that she had skipped her dialysis on Saturday because she thought she might vomit and didn't want to get sick while in the car to dialysis. I spoke with Dr. Neves she agrees with observation admit for oxygen administration and O2 saturation monitoring until she can go to dialysis in the morning. Departure Clinical Impression: ESRD (end stage renal disease) on dialysis, Pulmonary edema, noncardiac Fluid overload Qualifiers: Hypervolemia type: other Qualified Code(s): E87.79 - Other fluid overload - Departure Disposition: Still a patient Condition: Fair
[2018-10-28 23:26] LABS: Hematocrit 36.8 % (37.0-47.0); Mean Cell Volume 98.4 fl (78-100); Mean Corpuscular Hemoglobin 32.1 pg (27-31); Mean Corpuscular Hgb Conc 32.6 g/dl (32-36); Mean Platelet Volume 10.1 fl (8-12.5); Neutrophil % 87.9 % (42-75.0); Platelet Count 172 K/mm3 (150-450); Red Blood Count 3.74 M/mm3 (4.2-5.4); Red Cell Distribution Width 14.5 % (11.5-14.0); White Blood Count 11.4 K/mm3 (4.0-10.5)
[2018-10-28 23:47] LABS: ALT 10 U/L (19-67); AST 13 U/L (0-48); Albumin * 3.5 gm/dl (3.4-5.0); Alkaline Phosphatase * 140 U/L (50-170); Anion Gap 22.9 mmol/L (6.8-13.8); BUN/Creatinine Ratio 8.6 (9.0-21.6); Bilirubin, Total 0.8 mg/dL (0.0-1.1); Blood Urea Nitrogen 59 mg/dL (3-23); Ca. Corrected For Albumin 9.5 mg/dL (8.4-10.2); Calcium * 9.4 mg/dL (7.9-10.9); Carbon Dioxide 21.8 mmol/L (24-32.6); Chloride 97 mmol/L (97-106); Glucose * 155 mg/dL (70-110); Potassium 5.7 mmol/L (3.4-4.6); Sodium 136 mmol/L (132-142); Total Protein 6.7 gm/dL (6.2-8.2)
[2018-10-29 00:09] LABS: BNP * Greater than 35000 pg/mL (5-325)
--- NOTE | 2018-10-29 08:18 | HPDIS ---
Chief Complaint - Chief Complaint Date of Service: 10/29/18 Time of Service: 08:08 Chief Complaint: shortness of breath History of Present Illness: Desiree Gutiérrez is a 73-year-old white female with past medical history of end- stage renal disease on hemodialysis, coronary artery disease, status post ICD defibrillator placement, peripheral arterial disease, status post bilateral BKA, diabetes mellitus type 2, hypertension, who was admitted on 10/28/2018 because of increasing shortness of breath. 2 days prior to the admission the patient had episodes of vomiting, not associated with abdominal pain, diarrhea, constipation. She was afraid that she will get sicker in the car going to her hemodialysis appointment last Saturday and so she did not have her hemodialysis. One day prior to admission the patient started getting more short of breath and and so EMS was called and she was brought to the emergency room. She was desaturating in the 80s. She was on 2 L of oxygen. This was increased to 4L and the patient was admitted overnight for observation. She remained in the upper 90s at rest on 4 L but would desaturate into the 87 to 88% with transfer. Her potassium is 5.7. Her BNP was more than 35,000. Her chest x-ray showed pulmona ry congestion and official reading showed enlarged cardiac silhouette, questionable left lower lung density, effusion versus atelectasis cannot rule out pneumonia. Her white blood cell count was 11.4. She however denies clinically any coughing, wheezing, fever or chills. I discussed this case with nephrology on-call and they are able to give her oxygen at the hemodialysis center and it alright for her to to the center if her vital signs are stable. We will discharge patient for her scheduled hemodialysis today. Medical History (Updated 10/29/18 @ 08:18 by Samantha Watson MD) Rheumatoid arthritis (Chronic) Gout (Chronic) Anemia (Chronic) Diabetes mellitus (Chronic) Afib (Chronic) Anxiety (Chronic) Dialysis patient (Chronic) Pacemaker (Chronic) GERD (gastroesophageal reflux disease) (Chronic) Hypertension (Chronic) CRF (chronic renal failure) (Chronic) Peripheral vascular disease (Chronic) Coronary artery disease (Chronic) HLD (hyperlipidemia) (Chronic) Bradycardia Anxiety Atrial fibrillation Atrial fibrillation with rapid ventricular response CHF (congestive heart failure) Congestive heart failure (CHF) Diabetes mellitus Dyspnea Hydronephrosis Renal failure Renal failure Acute anxiety Acute on chronic renal failure [id number] kidney injury Chest pain Contusion of leg, left Contusion, arm, upper Elevated INR Hand contusion History of cerebral infarction History of myocardial infarction Hypercalcemia Hyperkalemia Hypotension due to hypovolemia Open wound of foot Pyelonephritis, acute Rash SOB (shortness of breath) URI (upper respiratory infection) UTI (urinary tract infection) Urinary tract infection Urinary tract infection in elderly patient Weakness generalized Surgical History: Surgical History (Updated 10/29/18 @ 08:18 by Samantha Watson MD) History of amputation of both lower extremities (Resolved) History of implantable cardioverter-defibrillator (ICD) placement (Resolved) Status post bilateral below knee amputation AV fistula AV fistula Below knee amputation status Hx of cardiac pacemaker Right below the knee amputation Family History: Family History (Updated 12/03/17 @ 11:56 by Raimundo Mata LPN) Father Accident caused by explosion of boiler Mother Diabetes Brother Diabetes Social History: (Last Reviewed 10/29/18 @ 02:41 by Lexii Reynoso RN) Social History: snf: No Marital status: lives independently: No household members: spouse current occupational status: unemployed Service: No Tobacco: Smoking Status: Never smoker Alcohol: alcohol intake: never Substance Use: substance use type: does not use Dietary Habits: caffeine: Yes Exercise: Physical activity type: none Physical activity functional status: wheelchair user frequency: does not exercise Review Of Systems (GEN) - Review of Systems Generalized/Overall Review: Absent: Chills, Fever EENTM: Absent: Blurred Vision, Nose Congestion Respiratory: Present: Shortness of Breath, Orthopnea. Absent: Cough, Wheezing Cardiac: Absent: Chest Pain, Edema - upper extremeties, Palpitations Abdominal: Present: Vomiting - resolved. Absent: Abdominal Pain, Diarrhea, Melena Genitourinary: Absent: Urgency, Frequency Musculoskeletal: Absent: Joint Pain, Back Pain Neurological: Absent: Headache Skin: Absent: Rash Endocrine: Absent: Intolerance to Cold, Intolerance to Heat Misc: All systems neg except as marked Immunizations: IMMUNIZATION HX Immunizations Up to Date Yes History of Influenza Vaccine Yes Hx Pneumococcal Vaccination Yes Allergies/Adverse Reactions: Allergies Allergy/AdvReac Type Severity Reaction Status Date / Time Metronidazole HCl Allergy Other Verified 10/23/18 09:58 [From Flagyl] ORA Inhibitors AdvReac Mild COUGH Verified 10/23/18 09:58 gentamicin [Gentamicin] AdvReac Mild LOST SENSE Verified 10/23/18 09:58 OF BALANCE morphine AdvReac Mild N/V Verified 10/23/18 09:58 Home Medications: HOME MEDICATIONS albuterol sulfate HFA 90 mcg/actuation aerosol inhaler 2 puff IH Q6H PRN #6.7 g 12/05/17 [Last Taken Unknown] acetaminophen ER 650 mg tablet,extended release 650 mg PO Q8H PRN tab 05/20/18 [Last Taken Unknown] aspirin 81 mg tablet,delayed release 81 mg PO DAILY 05/20/18 [Last Taken Unknown] calcium acetate 667 mg capsule 667 mg PO TID 05/20/18 [Last Taken Unknown] isosorbide mononitrate ER 30 mg tablet,extended release 24 hr 30 mg PO QPM tab 05/20/18 [Last Taken Unknown] nitroglycerin 0.4 mg sublingual tablet 0.4 mg SL Q5-15M PRN 05/20/18 [Last Taken Unknown] polyethylene glycol 3350 17 gram oral powder packet 17 g PO DAILY PRN ea 05/20/18 [Last Taken Unknown] Ondansetron HCl [Zofran] 1 - 2 tab PO Q8H PRN #10 tab 06/17/18 [Last Taken Unknown] Durable Medical Equipment See Rx Instructions .ROUTE .MEDSUPPLY #1 ea 07/01/18 [Last Taken Unknown] clopidogrel 75 mg tablet 75 mg PO DAILY #30 tab 07/21/18 [Last Taken Unknown] atorvastatin 10 mg tablet 10 mg PO HS #90 tab 07/24/18 [Last Taken Unknown] insulin detemir (U-100) 100 unit/mL subcutaneous solution 23 unit SUBCUT DAILY #10 ml 10/10/18 [Last Taken Unknown] melatonin 5 mg tablet 5 mg PO HS #30 tab 10/23/18 [Last Taken Unknown] amiodarone 200 mg tablet 400 mg PO BID #180 tab 10/24/18 [Last Taken Unknown] Sevelamer Carbonate [Renvela] 800 mg PO AC 10/29/18 [Last Taken Unknown] Warfarin Sodium 1 mg PO DAILY 10/29/18 [Last Taken Unknown] Warfarin Sodium 2 mg PO DAILY 10/29/18 [Last Taken Unknown] Exam - Exam Vital Signs: Vital Signs - Last Taken Temp 36.9 C 10/29/18 07:00 Pulse 68 10/29/18 07:00 Resp 26 H 10/29/18 07:00 BP 130/70 10/29/18 07:00 Pulse Ox 97 10/29/18 07:00 Constitutional: Present: Alert, Oriented x3, Cooperative ENT Exam: Present: hearing grossly normal Eye Exam: bilateral eye: normal inspection, PERRL, EOMI Neck: Present: supple. Absent: lymphadenopathy (R), lymphadenopathy (L) Respiratory: Present: decreased breath sounds, rales, No wheezing. Absent: crackles Cardiovascular/Chest: Present: JVD, irregularly irregular Abdomen: Present: Normal bowel sounds, soft, nontender, nondistended Extremity: Present: other - b/l BKA Diagnostic Studies: Abnormal Lab Results 10/28/18 10/28/18 Range/Units 23:25 23:25 WBC 11.4 H (4.0-10.5) K/mm3 RBC 3.74 L (4.2-5.4) M/mm3 Hgb 12.0 L (12.5-16.0) gm/dL Hct 36.8 L (37.0-47.0) % MCH 32.1 H (27-31) pg RDW 14.5 H (11.5-14.0) % Immature Gran % (Auto) 0.50 H (0.001-0.429) % Immature Gran # (Auto) 0.06 H (0.000-0.0310) K/mm3 Neutrophils % 87.9 H (42-75.0) % Lymphocytes % 4.2 L (20-51) % Neutrophils # 10.0 H (1.3-6.0) K/mm3 Lymphocytes # 0.48 L (1.5-3.5) k/mm3 Potassium 5.7 H (3.4-4.6) mmol/L Carbon Dioxide 21.8 L (24-32.6) mmol/L Anion Gap 22.9 H (6.8-13.8) mmol/L BUN 59 H (3-23) mg/dL Creatinine 6.83 H D (0.4-1.4) mg/dL Est GFR (Non-Af Amer) 6 L (60-130) mL/min BUN/Creatinine Ratio 8.6 L (9.0-21.6) Random Glucose 155 H (70-110) mg/dL ALT 10 L (19-67) U/L B-Natriuretic Peptide Greater than 63524 H (5-325) pg/mL Laboratory Results WBC 11.4 K/mm3 (4.0-10.5) H 10/28/18 23:25 RBC 3.74 M/mm3 (4.2-5.4) L 10/28/18 23:25 Hgb 12.0 gm/dL (12.5-16.0) L 10/28/18 23:25 Hct 36.8 % (37.0-47.0) L 10/28/18 23:25 MCV 98.4 fl (78-100) 10/28/18 23:25 MCH 32.1 pg (27-31) H 10/28/18 23:25 MCHC 32.6 g/dl (32-36) 10/28/18 23:25 RDW 14.5 % (11.5-14.0) H 10/28/18 23:25 Plt Count 172 K/mm3 (150-450) 10/28/18 23:25 MPV 10.1 fl (8-12.5) 10/28/18 23:25 Immature Gran % (Auto) 0.50 % (0.001-0.429) H 10/28/18 23:25 Immature Gran # (Auto) 0.06 K/mm3 (0.000-0.0310) H 10/28/18 23:25 87.9 % (42-75.0) H 10/28/18 23:25 4.2 % (20-51) L 10/28/18 23:25 7.2 % (0.0-9) 10/28/18 23:25 0.0 % (0.0-3.0) 10/28/18 23:25 0.2 % (0.0-1.0) 10/28/18 23:25 Nucleated RBC % 0.0 k/mm3 (0-1) 10/28/18 23:25 10.0 K/mm3 (1.3-6.0) H 10/28/18 23:25 0.48 k/mm3 (1.5-3.5) L 10/28/18 23:25 0.8 k/mm3 (0.0-1.0) 10/28/18 23:25 0.0 k/mm3 (0.0-0.7) 10/28/18 23:25 Absolute Basophils 0.0 k/mm3 (0.0-0.1) 10/28/18 23:25 Sodium 136 mmol/L (132-142) 10/28/18 23:25 137 mmol/L (130-142) 10/28/18 23:25 Potassium 5.7 mmol/L (3.4-4.6) H 10/28/18 23:25 Chloride 97 mmol/L (97-106) 10/28/18 23:25 Carbon Dioxide 21.8 mmol/L (24-32.6) L 10/28/18 23:25 22.9 mmol/L (6.8-13.8) H 10/28/18 23:25 BUN 59 mg/dL (3-23) H 10/28/18 23:25 6.83 mg/dL (0.4-1.4) H D 10/28/18 23:25 Est GFR (Non-Af Amer) 6 mL/min (60-130) L 10/28/18 23:25 8.6 (9.0-21.6) L 10/28/18 23:25 155 mg/dL (70-110) H 10/28/18 23:25 Calcium 9.4 mg/dL (7.9-10.9) 10/28/18 23:25 Calcium Adj for Albumin 9.5 mg/dL (8.4-10.2) 10/28/18 23:25 0.8 mg/dL (0.0-1.1) 10/28/18 23:25 AST 13 U/L (0-48) 10/28/18 23:25 ALT 10 U/L (19-67) L 10/28/18 23:25 140 U/L (50-170) 10/28/18 23:25 B-Natriuretic Peptide Greater than 00608 pg/mL (5-325) H 10/28/18 23:25 6.7 gm/dL (6.2-8.2) 10/28/18 23:25 3.5 gm/dl (3.4-5.0) 10/28/18 23:25 Assessment/Plan - Assessment/Plan (1) Fluid overload Assessment: likely due to missed HD Problem: Acute Qualifiers: Hypervolemia type: other Qualified Code(s): E87.79 - Other fluid overload (2) Pulmonary edema, noncardiac Assessment: likely due to missed HD Problem: Acute (3) ESRD (end stage renal disease) on dialysis Problem: Chronic (4) Rheumatoid arthritis Problem: Chronic Qualifiers: Rheumatoid arthritis location: unspecified site Rheumatoid factor presence: unspecified presence Qualified Code(s): M06.9 - Rheumatoid arthritis, unspecified (5) Diabetes mellitus Problem: Chronic Qualifiers: Diabetes mellitus type: type 2 Diabetes mellitus snf insulin use: with snf use Diabetes mellitus complication status: with kidney complications Diabetes mellitus complication detail: with chronic kidney disease Chronic kidney disease stage: on chronic dialysis Qualified Code(s): E11.22 - Type 2 diabetes mellitus with diabetic chronic kidney disease; N18.6 - End stage renal disease; Z79.4 - care home (current) use of insulin; Z99.2 - Dependence on renal dialysis (6) Afib Problem: Chronic Qualifiers: Atrial fibrillation type: unspecified Qualified Code(s): I48.91 - Unspecified atrial fibrillation (7) Pacemaker Problem: Chronic (8) GERD (gastroesophageal reflux disease) Problem: Chronic Qualifiers: Esophagitis presence: esophagitis presence not specified Qualified Code(s): K21.9 - Gastro-esophageal reflux disease without esophagitis (9) Peripheral vascular disease Problem: Chronic (10) Coronary artery disease Problem: Chronic Qualifiers: Coronary Disease-Associated Artery/Lesion type: bypass graft [place] vs. transplanted heart: [place] heart Associated angina: without angina Qualified Code(s): I25.810 - Atherosclerosis of coronary artery bypass graft(s) without angina pectoris (11) HLD (hyperlipidemia) Problem: Chronic Qualifiers: Hyperlipidemia type: pure hypercholesterolemia Qualified Code(s): E78.00 - Pure hypercholesterolemia, unspecified; E78.0 - Pure hypercholesterolemia (1) Fluid overload Problem: Acute Qualifiers: Hypervolemia type: other Qualified Code(s): E87.79 - Other fluid overload (2) Pulmonary edema, noncardiac Problem: Acute (3) ESRD (end stage renal disease) on dialysis Problem: Chronic (4) Rheumatoid arthritis Problem: Chronic Qualifiers: Rheumatoid arthritis location: unspecified site Rheumatoid factor presence: unspecified presence Qualified Code(s): M06.9 - Rheumatoid arthritis, unspecified (5) Diabetes mellitus Problem: Chronic Qualifiers: Diabetes mellitus type: type 2 Diabetes mellitus snf insulin use: with snf use Diabetes mellitus complication status: with kidney complications Diabetes mellitus complication detail: with chronic kidney disease Chronic kidney disease stage: on chronic dialysis Qualified Code(s): E11.22 - Type 2 diabetes mellitus with diabetic chronic kidney disease; N18.6 - End stage renal disease; Z79.4 - care home (current) use of insulin; Z99.2 - Dependence on renal dialysis (6) Afib Problem: Chronic Qualifiers: Atrial fibrillation type: unspecified Qualified Code(s): I48.91 - Unspecified atrial fibrillation (7) Pacemaker Problem: Chronic (8) GERD (gastroesophageal reflux disease) Problem: Chronic Qualifiers: Esophagitis presence: esophagitis presence not specified Qualified Code(s): K21.9 - Gastro-esophageal reflux disease without esophagitis (9) Peripheral vascular disease Problem: Chronic (10) Coronary artery disease Problem: Chronic Qualifiers: Coronary Disease-Associated Artery/Lesion type: bypass graft [place] vs. transplanted heart: [place] heart Associated angina: without angina Qualified Code(s): I25.810 - Atherosclerosis of coronary artery bypass graft(s) without angina pectoris (11) HLD (hyperlipidemia) Problem: Chronic Qualifiers: Hyperlipidemia type: pure hypercholesterolemia Qualified Code(s): E78.00 - Pure hypercholesterolemia, unspecified; E78.0 - Pure hypercholesterolemia Description of Stay: Desiree Gutiérrez is a 73-year-old white female with past medical history of end- stage renal disease on hemodialysis, coronary artery disease, status post ICD d efibrillator placement, peripheral arterial disease, status post bilateral BKA, diabetes mellitus type 2, hypertension, who was admitted on 10/28/2018 because of increasing shortness of breath. 2 days prior to the admission the patient had episodes of vomiting, not associated with abdominal pain, diarrhea, constipation. She was afraid that she will get sicker in the car going to her hemodialysis appointment last Saturday and so she did not have her hemodialysis. One day prior to admission the patient started getting more short of breath and and so EMS was called and brought her to the emergency room .She was desaturating in the 80s. She was on 2 L of oxygen. Her O2 was increased to 4L and the patient was admitted overnight for observation. She remained in the upper 90s at rest on 4 L at rest but would desaturate into the 87 to 88% with transfer. Her potassium is 5.7. Her BNP was more than 35,000. Her chest x-ray showed pulmonary congestion and official reading showed enlarged cardiac silhouette, questionable left lower lung density, effusion versus atelectasis cannot rule out pneumonia. Her white blood cell count was 11.4. She however denies clinically any coughing, wheezing, fever or chills. I discussed this case with nephrology on-call and they are able to give her oxygen at the hemodialysis center and she is alright to go there if her vital signs are stable. We will discharge patient for her scheduled hemodialysis today. She will go on 4 L NC . Procedures Performed: none Results and Findings: Lab Pending Results 10/28/18 23:25: WBC 11.4 H, RBC 3.74 L, Hgb 12.0 L, Hct 36.8 L, MCV 98.4, MCH 32.1 H, MCHC 32.6, RDW 14.5 H, Plt Count 172, MPV 10.1, Immature Gran % (Auto) 0.50 H, Immature Gran # (Auto) 0.06 H, Neutrophils % 87.9 H, Lymphocytes % 4.2 L, Monocytes % 7.2, Eosinophils % 0.0, Basophils % 0.2, Nucleated RBC % 0.0, Neutrophils # 10.0 H, Lymphocytes # 0.48 L, Monocytes # 0.8, Eosinophils # 0.0, Absolute Basophils 0.0 10/28/18 23:25: Sodium 136, Plasma Sodium 137, Potassium 5.7 H, Chloride 97, Carbon Dioxide 21.8 L, Anion Gap 22.9 H, BUN 59 H, Creatinine 6.83 H D, Est GFR (Non-Af Amer) 6 L, BUN/Creatinine Ratio 8.6 L, Random Glucose 155 H, Calcium 9.4, Calcium Adj for Albumin 9.5, Total Bilirubin 0.8, AST 13, ALT 10 L, Alkaline Phosphatase 140, B-Natriuretic Peptide Greater [place] 04971 H, Total Protein 6.7, Albumin 3.5 Discharge Location: Home Disposition: Home self-care Condition: Stable Discharge Activity: Activity as tolerated Discharge Diet: Consistent carbs Referrals: Samantha Watson MD [Primary Care Provider] - Additional Patient Instructions (free text): Follow up with PCP in 2 weeks Complete Home Medications List: Complete Home Medication List: albuterol sulfate HFA 90 mcg/actuation aerosol inhaler 2 puff IH Q6H PRN #6.7 g 12/05/17 acetaminophen ER 650 mg tablet,extended release 650 mg PO Q8H PRN tab 05/20/18 aspirin 81 mg tablet,delayed release 81 mg PO DAILY 05/20/18 calcium acetate 667 mg capsule 667 mg PO TID 05/20/18 isosorbide mononitrate ER 30 mg tablet,extended release 24 hr 30 mg PO QPM tab 05/20/18 nitroglycerin 0.4 mg sublingual tablet 0.4 mg SL Q5-15M PRN 05/20/18 polyethylene glycol 3350 17 gram oral powder packet 17 g PO DAILY PRN ea 05/20/18 Ondansetron HCl [Zofran] 1 - 2 tab PO Q8H PRN #10 tab 06/17/18 Durable Medical Equipment See Rx Instructions .ROUTE .MEDSUPPLY #1 ea 07/01/18 clopidogrel 75 mg tablet 75 mg PO DAILY #30 tab 07/21/18 atorvastatin 10 mg tablet 10 mg PO HS #90 tab 07/24/18 insulin detemir (U-100) 100 unit/mL subcutaneous solution 23 unit SUBCUT DAILY #10 ml 10/10/18 melatonin 5 mg tablet 5 mg PO HS #30 tab 10/23/18 amiodarone 200 mg tablet 400 mg PO BID #180 tab 10/24/18 Sevelamer Carbonate [Renvela] 800 mg PO AC 10/29/18 Warfarin Sodium 1 mg PO DAILY 10/29/18 Warfarin Sodium 2 mg PO DAILY 10/29/18
[2018-10-29 10:02] VITALS: BP 135/72
== END 2018-10-29 11:00 | disposition home or self-care (01) ==
LOC: ER 21:18 → MS 21:18
PROVIDERS: ADMIT Family Medicine; ATTEND Internal Medicine
CPT/HCPCS: 36415; 71020; 71046; 80053; 83519; 83880; 85025; 87040; 87081; 93005; 94760; 94762; 99284; G0378